=== PATIENT | male | born 1965 | race Caucasian/White ===

== ENCOUNTER → 2016-06-08 | Outpatient (CLI) | payer BC ==
[~2016-06-08] VITALS: Ht 190.5 cm; Wt 157.8 kg
[~2016-06-08] MED LIST: ALL100 PO; ALLO100T PO; FRRS300 PO; ICOS1CAP PO; LISI-787 PO; OXYC1TAB3 PO; SYMIN160 INH; TESTOSTERONE SC
[2016-06-08 15:11] VITALS: BP 155/91; PULSE 101; Ht 190.5 cm; Wt 157.8 kg
== END | disposition home or self-care (01) ==
LOC: C.NEUR 14:20
PROVIDERS: ATTEND Internal Medicine Pulmonary Disease
DX: G47.33 Obstructive sleep apnea (adult) (pediatric) (principal); I10 Essential (primary) hypertension

== ENCOUNTER → 2016-06-19 | Outpatient (CLI) | payer BC ==
[2016-06-19 15:10] LABS: ALKALINE PHOSPHATASE 69 U/L (45-117); ALT/SGPT 49 U/L (12-78); AST/SGOT 34 U/L (15-37); BLOOD UREA NITROGEN 17 mg/dl (7-18); BUN/CREATININE RATIO 12.1 (10-20); CALCIUM 8.8 mg/dl (8.5-10.1); CARBON DIOXIDE 26 mmol/L (21-32); CHLORIDE 100 mmol/L (98-107); CHOLESTEROL 155 mg/dl (0-200); CHOLESTEROL/HDL RATIO 5.3; GLUCOSE 118 mg/dl (70-99); HDL CHOLESTEROL 29 mg/dl; POTASSIUM 3.7 mmol/L (3.5-5.1); SODIUM 138 mmol/L (136-145); TRIGLYCERIDES 428 mg/dl (0-150)
== END | disposition home or self-care (01) ==
LOC: C.LAB 06-10 14:17
PROVIDERS: ATTEND Nurse Practitioner Acute Care
DX: R63.5 Abnormal weight gain (principal); E55.9 Vitamin D deficiency, unspecified; G47.9 Sleep disorder, unspecified; R53.81 Other malaise; E03.9 Hypothyroidism, unspecified; E25.8 Other adrenogenital disorders

== ENCOUNTER → 2016-06-23 | Outpatient (CLI) | payer BC ==
--- NOTE | 2016-06-26 09:03 | POLYSOMNOGRAPH REPORT ---
CLINICAL DATA: 50-year-old male with BMI of 43.[address] Coles and Dr. Baum with a history of loud snoring, fatigue, falling asleep inappropriately and unrefreshing sleep. On the evening of 06/23/2016, a home sleep apnea test was performed using a [employer] type 3 monitor. RECORDING RESULTS: Total recording time was 10 hours. The patient's monitoring time and estimated sleep time was 5 hours. RESPIRATORY DATA: Moderate sleep apnea was documented. The KRISTIN was 21. There were 7 obstructive apneic episodes and 99 hypopneic episodes recorded. The longest respiratory event recorded was 57 seconds. OXIMETRY DATA: Significant nocturnal hypoxemia was seen. Oxygen gretchen was 74%. Mean saturation was 91%. Time below 89% was 49 minutes. HEART RATE DATA: Heart rates ranged from 59-75 beats per minute. SNORING DATA: Loud snoring was recorded throughout the night. IMPRESSION: Moderate sleep apnea/hypopnea with an KRISTIN of 21 with significant nocturnal hypoxemia with an oxygen gretchen of 74%. RECOMMENDATIONS: The patient would benefit from a repeat sleep study with CPAP. ESCOBAR
== END | disposition home or self-care (01) ==
LOC: C.NEUR 10:10
PROVIDERS: ATTEND Internal Medicine Pulmonary Disease
DX: J44.9 Chronic obstructive pulmonary disease, unspecified (principal); I10 Essential (primary) hypertension; E66.01 Morbid (severe) obesity due to excess calories; G47.33 Obstructive sleep apnea (adult) (pediatric)

== ENCOUNTER → 2016-07-23 | Outpatient (CLI) | payer BC ==
[~2016-07-23] VITALS: Ht 190.5 cm; Wt 156.3 kg
[2016-07-23 15:21] VITALS: BP 116/80; PULSE 99; Ht 190.5 cm; Wt 156.3 kg
== END | disposition home or self-care (01) ==
LOC: C.NEUR 15:03
PROVIDERS: ATTEND Internal Medicine Pulmonary Disease
DX: G47.33 Obstructive sleep apnea (adult) (pediatric) (principal); J44.9 Chronic obstructive pulmonary disease, unspecified

== ENCOUNTER 2016-07-31 16:38 | Emergency (ER) | payer BC ==
[~2016-07-31] VITALS: Ht 193 cm; Wt 151.3 kg
[~2016-07-31 16:38] MED LIST changes: -FRRS300 PO; -OXYC1TAB3 PO; -SYMIN160 INH; -TESTOSTERONE SC
[2016-07-31 16:41] VITALS: TEMP 37; Ht 193 cm; Wt 151.3 kg
[2016-07-31] MEDS ORDERED: SYMIN160 INH (16:50)
[2016-07-31] MEDS ORDERED: OXYCODONE HCL IR 5 MG TAB (IMMEDIATE RELEASE) PO STA (16:57)
--- NOTE | 2016-07-31 18:00 | DIAGNOSTIC IMAGING REPORT ---
RIGHT SHOULDER MIN 2 VIEWS ROUTINE CLINICAL HISTORY: Fall, right shoulder pain Right pain COMPARISON: None. DISCUSSION: Mild degenerative change. No acute bony abnormality. There is no evidence for soft tissue swelling. IMPRESSION: Mild degenerative change. No acute bony abnormality. Electronically signed by: Neil Thomas M.D. 07/31/2016 5:59 PM Dictated Date/Time: 07/31/2016 5:58 PM
--- NOTE | 2016-07-31 18:00 | DIAGNOSTIC IMAGING REPORT ---
RIGHT SCAPULA CLINICAL HISTORY: Fall, right shoulder pain Right COMPARISON: None. DISCUSSION: The bones and joint spaces appear intact. There is no evidence of fracture, dislocation or bony disease. There is no evidence for soft tissue swelling. IMPRESSION: Negative study. Electronically signed by: Neil Thomas M.D. 07/31/2016 5:59 PM Dictated Date/Time: 07/31/2016 5:59 PM
--- NOTE | 2016-07-31 18:01 | DIAGNOSTIC IMAGING REPORT ---
RIGHT RIBS UNILATERAL WITH PA CHEST CLINICAL HISTORY: Fall, right shoulder pain/rib pain Right COMPARISON STUDY: None FINDINGS: Negative study IMPRESSION: Negative study Electronically signed by: Neil Thomas M.D. 07/31/2016 6:00 PM Dictated Date/Time: 07/31/2016 5:59 PM
[2016-07-31] MEDS ORDERED: OXYCODONE IR HOME PACK PO STA (18:37)
[2016-07-31] MEDS ORDERED: OXYC1TAB3 PO (18:38)
--- NOTE | 2016-07-31 18:39 | EMERGENCY ROOM VISIT NOTE ---
History First contact with patient: 16:47 Chief Complaint: SHOULDER PAIN Stated Complaint: SHOULDER PAIN, CAN'T LIFT ARM History of Present Illness The patient is a 51 year old male who presents to the Emergency Room via private vehicle accompanied by female with complaints of "shoulder pain, can't lift arm". The patient states that earlier today he was at the top of the steps in his home, when his foot slipped and he tumbled down the steps striking the right shoulder region. He notes that he went to work, and since then has been experiencing pain in the right shoulder. He notes that he cannot lift the right arm secondary to pain and weakness in the right shoulder. He does have a history of right shoulder surgery, where synthetic material was placed in the shoulder at the age of 15 or 16 in [place]. He also notes pain just medial to the right shoulder as well as overlying the scapula. He rates the pain as a 7/ 10. He does note that when he fell he may have lost consciousness. At this time he denies any headache, neck pain, shortness of breath. Review of Systems A complete 6-point Review of Systems was discussed with the patient, with pertinent positives and negatives listed in the History of Present Illness. All remaining Review of Systems questions can be considered negative unless otherwise specified. Past Medical/Surgical History Medical Problems: (1) Asthma (2) Hypertension Family History Hypertension Social History Smoking Status: Never Smoker Alcohol Use: none Marital Status: Housing Status: lives with significant other Occupation Status: employed Current/Historical Medications Scheduled Allopurinol (Zyloprim), 100 MG PO DAILY Budesonide/Formoterol Fumarate (Symbicort 160/4.5 Inhaler ), 2 PUFFS INH BID Icosapent Ethyl (Vascepa), 2 CAP PO BID Lisinopril/Hctz (Zestoretic 20MG/12.5MG), 1 TAB PO AMPM Scheduled PRN Oxycodone Ir (Roxicodone Ir), 1-2 TAB PO Q4H PRN for Pain Allergies Coded Allergies: Cephalexin (Verified Allergy, Intermediate, FEVER/DIAPHORESIS, 07/31/16) Physical Exam Vital Signs Date Time Temp Pulse Resp B/P Pulse Ox O2 Delivery O2 Flow Rate FiO2 07/31/16 18:49 92 18 137/89 93 Room Air 07/31/16 16:41 37.0 95 20 149/93 94 Room Air Physical Exam VITAL SIGNS - Vital signs and nursing notes were reviewed. Patient is afebrile , he is hypertensive at 149/93, he is not tachycardic and is saturating well on room air at 94%. GENERAL -51-year-old male appearing his stated age who is in no acute distress. Communicates well with provider and answers questions appropriately. SKIN - Without rashes. No petechial rashes. There is evidence of well-healed surgical scar overlying the right anterior shoulder. HEAD - NC/AT. EYES - PERRL with EOMI bilaterally. Sclera anicteric. Palpebral conjunctiva pink and moist with no injection noted. EARS - No deformities of external structures noted on gross examination bilaterally. NOSE - Midline and without cyanosis. No epistaxis or purulent drainage noted. Septum midline without deviation or septal hematoma noted. MOUTH/OROPHARYNX - Without perioral cyanosis. Buccal mucosa pink and moist and without leukoplakia. Tongue midline with equal elevation of palate bilaterally. No tonsillar hypertrophy, erythema, or exudates noted. There dentition noted. NECK - Neck with FROM. Supple to palpation. No C-spine tenderness. No thoracic or lumbar spinous processes tenderness. LUNGS - Chest wall symmetric without accessory muscle use, intercostals retractions, or central cyanosis. Normal vesicular breath sounds CTA B/L. No wheezes, rales, or rhonchi appreciated. CARDIAC - RRR with S1/S2. No murmur, rubs, or gallops appreciated. ABDOMEN - Abdominal contour without pulsations or visible masses. BS normoactive all four quadrants. No tenderness, palpable masses, hepatosplenomegaly, or ascites noted. EXTREMITIES - No clubbing or peripheral cyanosis. No pretibial edema present. Patient is vascular intact in the right upper extremity. There is tenderness to palpation over the right scapular, right lateral ribs as well as right anterior chest region just medial to the right shoulder. The pain seems to be serafin-shoulder. The patient appears to have a deficit of the rotator cuff ligaments, as when he abducts the arm passively, and I have him pronate the hand , the empty can test is positive. No other deficits appreciated. NEUROLOGIC - Cranial nerves II through XII grossly intact. Sensory intact to light touch throughout. Medical Decision & Procedures ER Provider Diagnostic Interpretation: RIGHT SHOULDER MIN 2 VIEWS ROUTINE CLINICAL HISTORY: Fall, right shoulder pain Right pain COMPARISON: None. DISCUSSION: Mild degenerative change. No acute bony abnormality. There is no evidence for soft tissue swelling. IMPRESSION: Mild degenerative change. No acute bony abnormality. Electronically signed by: Neil Thomas M.D. 07/31/2016 5:59 PM Dictated Date/Time: 07/31/2016 5:58 PM RIGHT SCAPULA CLINICAL HISTORY: Fall, right shoulder pain Right COMPARISON: None. DISCUSSION: The bones and joint spaces appear intact. There is no evidence of fracture, dislocation or bony disease. There is no evidence for soft tissue swelling. IMPRESSION: Negative study. Electronically signed by: Neil Thomas M.D. 07/31/2016 5:59 PM Dictated Date/Time: 07/31/2016 5:59 PM RIGHT RIBS UNILATERAL WITH PA CHEST CLINICAL HISTORY: Fall, right shoulder pain/rib pain Right COMPARISON STUDY: None FINDINGS: Negative study IMPRESSION: Negative study Electronically signed by: Neil Thomas M.D. 07/31/2016 6:00 PM Dictated Date/Time: 07/31/2016 5:59 PM Medications Administered Medications (Trade) Dose Ordered Sig/Sixto Route Start Time Stop Time Status Last Admin Dose Admin Oxycodone HCl (Roxicodone Immediate Rel Tab) 5 mg NOW STAT PO 07/31/16 16:57 07/31/16 17:00 DC 07/31/16 17:04 5 MG Oxycodone HCl (Roxicodone Immediate Rel 5MG Home Pack) 1 homepack UD STAT PO 07/31/16 18:37 07/31/16 18:38 DC 07/31/16 18:37 1 HOMEPACK Medical Decision Patient was seen and evaluated as above. After obtaining a thorough history and physical examination it was apparent that the patient had sustained an injury to the right shoulder, likely to the rotator cuff muscles, particularly the supraspinatus and physical examination and clinical presentation. Because of the nature of the injury, radiographs were obtained of the right shoulder, scapula and ribs unilateral with PA chest. He did request something for pain, therefore was given an OxyIR tablets, and ice packs. Radiographs did not reveal any acute fracture. Degenerative changes noted. These were discussed with the patient. The patient does appear to have a rotator cuff injury, therefore arm sling was applied, and he was instructed to follow-up with the on- call orthopedic doctor by calling the number first thing Wednesday morning. He was provided this contact information. He was educated upon management of today 's findings. He was given a short term supply of OxyIR as well as a home pack as his pharmacy was likely closed. He was educated upon worrisome symptoms which to return, he had questions answered prior to discharge, and was discharged home in good condition. He respectfully declined a head CT, which I believe was appropriate status post fall with loss of consciousness. There was no neurologic deficit. In the evaluation and treatment of this patient the following differential diagnoses were entertained: Rotator cuff muscle injury, contusion of the right shoulder, dislocation, fracture of the humerus, shoulder, scapula, clavicle, pneumothorax, among others. [facility] Drug Monitoring Program Search Results: patient reviewed within database, no issues identified Impression Primary Impression: Fall Additional Impression: Right shoulder injury Departure Information Dispostion Home / Self-Care Condition GOOD Prescriptions Oxycodone Ir (Roxicodone Ir) 5 Mg Tab 1-2 TAB PO Q4H Y for Pain, #15 TAB For Initial Treatment Prov: Michael Camejo PA-C 07/31/16 Referrals Travis Baum M.D. (PCP) Todd Keller D.O. Patient Instructions My [facility] Additional Instructions You have been treated in the Emergency Department for Shoulder Pain. You have received pain medicine in the emergency department which impairs your ability to operate a vehicle. It is illegal for you to drive after receiving these medicines. You have been prescribed Oxy IR to be used for pain control. This is a narcotic medication. You cannot drive or consume alcohol while on this medicine. This medicine should only be used for pain that cannot be controlled with over-the- counter pain medicines. For pain control, you can use the following lyxi-ojr-sujivfi medicines (if >12 yo): - Regular strength (325mg/tab) Tylenol (acetaminophen) 2 tabs every 4-6 hours as needed. Do not exceed 12 tablets in a 24 hour period. Avoid taking more than 4 grams (4000 mg) of Tylenol per day. This includes any other sources of acetaminophen you may take on a regular basis. - Regular strength (200 mg/tab) Advil (ibuprofen) 1-2 tabs every 4-6 hours as needed. Do not exceed a dose of 3200 mg per day. If this is a recent injury (<24 hrs), ice can be applied to the area of pain for the first 3 days to help decrease pain and inflammation. You have been provided the number for an Orthopaedic Surgeon. You should call this number as soon as possible to establish a follow-up visit from today's Emergency Department visit. Keep the shoulder brace/sling in place until evaluated by Orthopedics. Continue to perform range of motion exercises several times per day to help prevent the development of a "frozen shoulder". Return to the Emergency Department if your current symptoms worsen despite treatment course outlined above, or if you develop any of the following symptoms : intractable pain despite aforementioned treatment course or new onset of numbness or tingling of the arm. Please return to the emergency department with any new/concerning symptoms. Problem Qualifiers
[2016-07-31 18:49] VITALS: BP 137/89; PULSE 92; O2SAT 93
[2016-08-18] MEDS ORDERED: OXYC1TAB3 PO (15:55)
[2016-10-14] MEDS ORDERED: TESTOSTERONE SC (14:06)
[2016-10-24] MEDS ORDERED: FRRS300 PO (09:34)
== END 2016-07-31 18:50 | disposition home or self-care (01) ==
LOC: C.EDB 16:39 → C.EDD 18:50
DX: S49.91XA Unspecified injury of right shoulder and upper arm, initial encounter (principal); W01.0XXA Fall on same level from slipping, tripping and stumbling without subsequent striking against object, initial encounter; Y92.019 Unspecified place in single-family (private) house as the place of occurrence of the external cause; I10 Essential (primary) hypertension; J45.909 Unspecified asthma, uncomplicated; Z79.899 Other long term (current) drug therapy; Z88.3 Allergy status to other anti-infective agents; Z82.49 Family history of ischemic heart disease and other diseases of the circulatory system

== ENCOUNTER → 2016-08-06 | Outpatient (CLI) | payer BC ==
[~2016-08-06] MED LIST changes: -ALL100 PO; +FRRS300 PO; +OXYC1TAB3 PO; +SYMIN160 INH; +TESTOSTERONE SC
[2016-08-06 15:36] LABS: MAGNESIUM 2.2 mg/dl (1.8-2.4); PROSTATE SPECIFIC ANTIGEN 1.09 ng/ml (0.000-4.000)
[2016-08-07 06:28] LABS: ESTIMATED AVERAGE GLUCOSE 120 mg/dl; HA1C FLAG Normal (Normal)
--- NOTE | 2016-08-11 12:27 | CODING QUERY MEDICAL NECESSITY ---
SUPPORTING DIAGNOSIS NEEDED A supporting diagnosis is required for the test/procedure performed on this patient in order for us to be reimbursed by the patient's insurance. Please provide a supporting diagnosis for the following test/procedure listed below next to the test name along with your signature. *If there is no additional diagnosis for this patient that would support the following test/procedure please document that below next to the test/procedure. Test(s)/Procedure(s) that require a supporting diagnosis: DOS 08/06 * Hba1c DIAGNOSIS: * PSA DIAGNOSIS: Provider Signature: Date: Thank you Leeanne Ruiz Health Information Management Once completed, please kindly fax back to [phone] For questions please call [phone]
== END | disposition home or self-care (01) ==
LOC: C.LABSPEC 19:01
PROVIDERS: ATTEND Nurse Practitioner Acute Care
DX: E03.9 Hypothyroidism, unspecified (principal); R53.81 Other malaise; R63.5 Abnormal weight gain; G47.9 Sleep disorder, unspecified; E55.9 Vitamin D deficiency, unspecified; E25.8 Other adrenogenital disorders; R73.02 Impaired glucose tolerance (oral); R39.15 Urgency of urination

== ENCOUNTER → 2016-08-18 | Outpatient (CLI) | payer BC ==
[~2016-08-18] MED LIST changes: +ASPI81TA28 PO; +OXYC-57 PO; +PHEN-876 PO; +PROM25TA9 PO; +SULF800T23 PO
[2016-08-18 12:49] LABS: BASO % 0.7 %; BASO ABS # 0.04 K/uL (0-0.2); COMPLETE YES; EOS % 1.5 %; HEMATOCRIT 41.9 % (42-52); IG% 0.7 %; LYMPH % 40.6 %; LYMPH ABS # 2.41 K/uL (1.2-3.4); MEAN CORPUSCULAR HEMOGLOBIN 25.9 pg (25-34); MEAN CORPUSCULAR HGB CONC 31.3 g/dl (32-36); MEAN PLATELET VOLUME 9.7 fL (7.4-10.4); MONO % 6.4 %; NEUT % 50.1 %; PLATELET COUNT 264 K/uL (130-400); RED BLOOD COUNT 5.05 M/uL (4.7-6.1); WHITE BLOOD COUNT 5.93 K/uL (4.8-10.8)
--- NOTE | 2016-08-18 12:58 | DIAGNOSTIC IMAGING REPORT ---
CHEST 2 VIEWS ROUTINE CLINICAL HISTORY: Preoperative evaluation. COMPARISON STUDY: Chest radiograph July 31, 2016. FINDINGS: Incidental note is made of an azygos fissure. There are old left rib fractures. No pneumothorax or pleural effusion is present. There is no pneumonia. Cardiac size is normal. There is slight leftward deviation of the trachea. Lateral view demonstrates a mass-like opacity located between the trachea and esophagus which displaces the trachea anteriorly. IMPRESSION: 1. Abnormal mediastinal contours as described above which may reflect a right-sided aortic arch or a double aortic arch. A mass is considered less likely but a follow-up CT of the chest with contrast is recommended to exclude a mass and to evaluate for a possible vascular ring. 2. No acute cardiopulmonary findings. Electronically signed by: Jer Huitron M.D. 08/18/2016 12:57 PM Dictated Date/Time: 08/18/2016 12:40 PM
[2016-08-18 13:13] LABS: BLOOD UREA NITROGEN 19 mg/dl (7-18); BUN/CREATININE RATIO 15.8 (10-20); CARBON DIOXIDE 32 mmol/L (21-32); CHLORIDE 101 mmol/L (98-107); GLUCOSE 92 mg/dl (70-99); SODIUM 139 mmol/L (136-145)
[2016-08-18 15:11] LABS: URINE APPEARANCE CLEAR (CLEAR); URINE BILIRUBIN NEG (NEG); URINE COLOR YELLOW; URINE NITRITE NEG (NEG); URINE PH 6.5 (4.5-7.5); URINE SPECIFIC GRAVITY 1.024 (1.000-1.030); UROBILINOGEN NEG (NEG)
[2016-08-18 15:16] LABS: MANUAL MICROSCOPIC REQUIRED? YES; REVIEW REQ? NO
[2016-08-18 15:55] LABS: URINE BACTERIA 1+ (NEG); URINE RBC 0-4 /hpf (0-4)
== END | disposition home or self-care (01) ==
LOC: C.CPL 12:09
PROVIDERS: ATTEND Orthopaedic Surgery Sports Medicine
DX: Z01.810 Encounter for preprocedural cardiovascular examination (principal); Z01.812 Encounter for preprocedural laboratory examination

== ENCOUNTER → 2016-08-21 | Outpatient (CLI) | payer BC ==
[~2016-08-21] MED LIST changes: +OPTIRAY 320 IV PRN
--- NOTE | 2016-08-21 08:10 | DIAGNOSTIC IMAGING REPORT ---
CHEST CT WITH CONTRAST CT DOSE: 1324.52 mGy.cm HISTORY: R93.8 Abnormal chest xrayplease eval cardiac structures, trachea TECHNIQUE: Multiaxial CT images of the chest were performed following the intravenous administration of contrast. COMPARISON: None. FINDINGS: Right-sided aortic arch. Several calcified mediastinal and/or hilar nodes. There is an azygos lobe right upper lung considered anatomic variation. No evidence for compromise of the trachea. Lungs are considered generally clear. Minimal scattered pleural thickening most likely chronic. Several small calcified granulomas. No significant cardiac enlargement. IMPRESSION: Right sided aortic arch. Chronic granulomatous change. No acute process of the chest. note is made of a focal cortical fracture of the mid right scapula demonstrate early periosteal reaction and or healing.. This is not appreciated on the patient's prior routine films. Electronically signed by: Neil Thomas M.D. 08/21/2016 8:08 AM Dictated Date/Time: 08/21/2016 8:01 AM
== END | disposition home or self-care (01) ==
LOC: C.CTS 07:14
PROVIDERS: ATTEND Nurse Practitioner
DX: R93.8 Abnormal findings on diagnostic imaging of other specified body structures (principal)

== ENCOUNTER → 2016-09-04 | Outpatient (CLI) | payer BC ==
[~2016-09-04] MED LIST changes: -OPTIRAY 320 IV PRN
== END | disposition home or self-care (01) ==
LOC: C.LAB 14:05
PROVIDERS: ATTEND Nurse Practitioner Acute Care
DX: E03.9 Hypothyroidism, unspecified (principal); R53.83 Other fatigue; R63.5 Abnormal weight gain; G47.9 Sleep disorder, unspecified; E55.9 Vitamin D deficiency, unspecified; E25.9 Adrenogenital disorder, unspecified; E34.9 Endocrine disorder, unspecified

== ENCOUNTER → 2016-10-19 | Day surgery (SDC) | payer BC ==
[2016-10-14 14:07] VITALS: Ht 193 cm; Wt 111.4 kg
[~2016-10-19] VITALS: Ht 193 cm; Wt 111.4 kg
[~2016-10-19] MED LIST changes: +ATROPINE SULFATE 0.1 MG/ML 5ML SYR IV PRN; +EpHEDrine SULFATE INJ 50 MG/ML AMP IV PRN; +KETAMINE HCL INJ 50 MG/ML 10 ML VIAL ONE; +LIDOCAINE HCL 2% 2 ML VIAL (20MG/ML) ONE; -OXYC1TAB3 PO; +PROPOFOL IV EMULSION 10 MG/ML 20 ML VIAL IV ONE; +SODIUM CHLORIDE 0.9% 500ML 500 ML IV ONE
[2016-10-19 12:26] VITALS: TEMP 36.8
--- NOTE | 2016-10-19 13:19 | Endo History and Physical ---
History & Physical Date of Service: Oct 19, 2016. Chief Complaint: screening Referring Physician: Dr. Travis Baum History of Present Illness 51 yo CM who presents for screening colonoscopy. Past Surgical History Hx Cardiac Surgery: No Hx Internal Defibrillator: No Hx Pacemaker: No Hx Abdominal Surgery: No Hx of Implantable Prosthesis: No Hx Post-Op Nausea and Vomiting: No Hx Cancer Surgery: No Hx Thoracic Surgery: No Hx Orthopedic: Yes (LEFT FOOT SURGERY, RT SHOULDER RECONSTRUCTION, CERVICAL FUSION C3-4) Hx Urinary Tract Surgery: No Family History None Social History Smoking Status: Never Smoker Hx Substance Use: No Hx Alcohol Use: Yes ("VERY SELDOM") Allergies Coded Allergies: Cephalexin (Verified Allergy, Intermediate, FEVER/DIAPHORESIS, 10/14/16) Current Medications Reported Home Medications Medications Dose Route/Sig Max Daily Dose Days Date Category [Testosterone] 1 Dose SC 2XWK 10/14/16 Reported Symbicort 160/4.5 Inhaler (Budesonide/Formoterol Fumarate) Aero 2 Puffs INH BID 07/31/16 Reported Zyloprim (Allopurinol) 100 Mg Tab 100 Mg PO QAM 01/15/16 Reported Zestoretic 20MG/12.5MG (HCTZ/Lisinopril) Tab 1 Tab PO AMPM 01/15/16 Reported Vascepa (Icosapent Ethyl) 1 Gm Cap 2 Cap PO BID 01/15/16 Reported Vital Signs Weight (Kilograms): 111.36 Height (Feet): 6 Height (Inches): 4 Date Time Temp Pulse Resp B/P (MAP) Pulse Ox O2 Delivery O2 Flow Rate FiO2 10/19/16 12:26 36.8 85 20 170/96 95 Room Air Physical Exam General Appearance: WD/WN, no apparent distress Respiratory/Chest: Auscultation: breath sounds normal Cardiovascular: Heart Auscultation: RRR Abdomen: Bowel Sounds: normal Inspection & Palpation: soft, non-distended, no tenderness, guarding & rebound Assessment and Plan Assessment: 51 yo CM who presents for screening colonoscopy. Plan: Proceed with colonoscopy.
--- NOTE | 2016-10-19 13:53 | Discharge Instructions ---
Endoscopy Patient Instructions Date / Procedure(s) Performed Oct 19, 2016. Colonoscopy Allergy Information Coded Allergies: Cephalexin (Verified Allergy, Intermediate, FEVER/DIAPHORESIS, 10/14/16) Discharge Date / Findings Oct 19, 2016. Colon polyps Internal hemorrhoids Provider Instructions Activity Restrictions - No exercising or heavy lifting for 24 hours. - Do not drink alcohol the day of the procedure. - Do not drive a car or operate machinery until the day after the procedure. - Do not make any important decisions or sign important papers in 24 hours after the procedure. Following Day: - Return to full activity which may include returning to work/school. Diet Start your diet with liquids and light foods (jello, soup, juice, toast). Then eat your usual diet if not nauseated. Treatment For Common After Affects For mild abdominal pain, bloating, or excessive gas: - Rest - Eat lightly - Lie on right side Follow-Up Information Follow-up with Dr. Travis Baum as scheduled Anesthesia Information What You Should Know You have had a procedure that required some medicine to reduce anxiety and discomfort. This treatment is called moderate sedation. After receiving the treatment, you may be sleepy, but you will be able to breathe on your own. The effects of the treatment may last for several hours. Follow these instructions along with Activity/Diet recommendations noted above: * Do NOT do anything where dizziness or clumsiness would be dangerous. * Rest quietly at home today, then you can be up and about tomorrow. * Have a responsible person stay with you the rest of today. * You may have had an I.V. today. If so, you may take the dressing off later today. Recommendations Call your doctor if: * Trouble breathing * Continuous vomiting for more than 24 hours * Temperature above 101 degrees * Severe abdominal pain or bloating * Pain not relieved by pain medicine ordered * There is increased drainage or redness from any incision * A large amount of rectal bleeding greater than 2-3 tablespoons. (If you had a polyp/s removed or have hemorrhoids, a small amount of blood - from the rectum is to be expected.) * You have any unanswered questions or concerns. IN THE EVENT OF A SERIOUS EMERGENCY, GO TO THE NEAREST EMERGENCY ROOM Your discharge instructions were prepared by provider Miguelito Calhoun. Patient Instructions Signature Page Brody Mares Patient (or Guardian) Signature/Date: I have read and understand the instructions given to me by my caregivers. Caregiver/RN/Doctor Signature/Date: The above-named patient and/or guardian has received patient instructions on this date. + Original Patient Signature Page (only) stays with chart. Please make copy for patient.
--- NOTE | 2016-10-19 13:56 | GI REPORT ---
Procedure Date: 10/19/2016 1:10 PM Procedure: Colonoscopy Indications: Screening for colorectal malignant neoplasm Medicines: Monitored Anesthesia Care Complications: No immediate complications. Estimated Blood Loss: Estimated blood loss: none. Procedure: Pre-Anesthesia Assessment: - Prior to the procedure, a History and Physical was performed, and patient medications and allergies were reviewed. The patient's tolerance of previous anesthesia was also reviewed. The risks and benefits of the procedure and the sedation options and risks were discussed with the patient. All questions were answered, and informed consent was obtained. Prior Anticoagulants: The patient has taken no previous anticoagulant or antiplatelet agents. ASA Grade Assessment: III - A patient with severe systemic disease. After reviewing the risks and benefits, the patient was deemed in satisfactory condition to undergo the procedure. After I obtained informed consent, the scope was passed under direct vision. Throughout the procedure, the patient's blood pressure, pulse, and oxygen saturations were monitored continuously. The On-site loaner was introduced through the anus and advanced to the cecum, identified by appendiceal orifice and ileocecal valve. The colonoscopy was performed without difficulty. The patient tolerated the procedure well. The quality of the bowel preparation was good. The ileocecal valve, appendiceal orifice, and rectum were photographed. Findings: Four sessile polyps were found in the sigmoid colon and in the ascending colon. The polyps were 5 to 15 mm in size. These polyps were removed with a hot snare. Resection and retrieval were complete. To prevent bleeding after the polypectomy, five hemostatic clips were successfully placed (MR conditional). There was no bleeding at the end of the procedure. Non-bleeding internal hemorrhoids were found during retroflexion. The hemorrhoids were small. Impression: - Four 5 to 15 mm polyps in the sigmoid colon and in the ascending colon, removed with a hot snare. Resected and retrieved. Clips (MR conditional) were placed. - Non-bleeding internal hemorrhoids. Recommendation: - Resume previous diet. - Continue present medications. - Repeat colonoscopy for surveillance based on pathology results. - Return to primary care physician as previously scheduled. Miguelito Calhoun DO 10/19/2016 1:55:41 PM This report has been signed electronically. Note Initiated On: 10/19/2016 1:10 PM I attest to the content of the Intraoperative Record and orders documented therein, exceptions below
[2016-10-19 14:30] VITALS: BP 137/90; PULSE 77; O2SAT 95
--- NOTE | 2016-10-19 14:36 | Anesthesiology Progress Note ---
Anesthesia Post Op Note Date & Time Oct 19, 2016 at 14:36 Vital Signs Pain Intensity: 0 Vital Signs Past 12 Hours Date Time Temp Pulse Resp B/P (MAP) Pulse Ox O2 Delivery O2 Flow Rate FiO2 10/19/16 14:30 77 20 137/90 95 Room Air 10/19/16 14:15 75 18 139/85 95 Room Air 10/19/16 13:59 77 18 109/80 96 Room Air 10/19/16 12:26 36.8 85 20 170/96 95 Room Air Notes Mental Status: alert / awake / arousable, participated in evaluation Pt Amnestic to Procedure: Yes Nausea / Vomiting: adequately controlled Pain: adequately controlled Airway Patency, RR, SpO2: stable & adequate BP & HR: stable & adequate Hydration State: stable & adequate Anesthetic Complications: no major complications apparent
== END | disposition home or self-care (01) ==
LOC: C.GI 12:09
PROVIDERS: ATTEND Internal Medicine
DX: Z12.11 Encounter for screening for malignant neoplasm of colon (principal); D12.2 Benign neoplasm of ascending colon; K64.8 Other hemorrhoids; Z98.1 Arthrodesis status; J44.9 Chronic obstructive pulmonary disease, unspecified; G47.33 Obstructive sleep apnea (adult) (pediatric); I10 Essential (primary) hypertension; E78.5 Hyperlipidemia, unspecified; E66.9 Obesity, unspecified; D12.5 Benign neoplasm of sigmoid colon

== ENCOUNTER 2016-10-22 00:05 | Inpatient (IN) | payer BC ==
[~2016-10-22] VITALS: Ht 193 cm; Wt 147.0 kg
[2016-10-22] VITALS (11 sets, daily range): BP systolic 112–201; BP diastolic 66–105; PULSE 77–91; TEMP 36.3–37.1; O2SAT 91–96; Ht 193 cm; Wt 147.0 kg
[~2016-10-22 00:05] MED LIST changes: -ASPI81TA28 PO; -ATROPINE SULFATE 0.1 MG/ML 5ML SYR IV PRN; -EpHEDrine SULFATE INJ 50 MG/ML AMP IV PRN; -FRRS300 PO; -KETAMINE HCL INJ 50 MG/ML 10 ML VIAL ONE; -LIDOCAINE HCL 2% 2 ML VIAL (20MG/ML) ONE; -OXYC-57 PO; -PHEN-876 PO; -PROM25TA9 PO; -PROPOFOL IV EMULSION 10 MG/ML 20 ML VIAL IV ONE; -SODIUM CHLORIDE 0.9% 500ML 500 ML IV ONE; -SULF800T23 PO
[2016-10-22] MEDS ORDERED: SODIUM CHLORIDE 0.9% 1000ML 1,000 ML IV STA (00:24)
--- NOTE | 2016-10-22 00:36 | EMERGENCY ROOM VISIT NOTE ---
History Report prepared by Tammy: Francisco Bullock Under the Supervision of: Dr. Cholo Crowell D.O. First contact with patient: 00:18 Chief Complaint: RECTAL BLEEDING Stated Complaint: RECTAL BLEEDING AFTE COLONOSCOPY History of Present Illness The patient is a 51 year old male who presents to the Emergency Room with complaints of intermittent hematochezia beginning 9 hours ago. He currently rates his discomfort a 6/10 in severity. The patient states that he had a colonoscopy with Dr. Calhoun, [facility] two days ago due to his age. He reports that he had a 1cm polypectomy. The patient notes that the blood is bright red and is not actively bleeding. He denies vomiting. The patient reports that he is no longer taking aspirin. Source of History: patient Onset: 9 hours ago Position: buttock Symptom Intensity: 6/10 Quality: other (hematochezia) Timing: intermittent Associated Symptoms: No vomiting Review of Systems See HPI for pertinent positives and negatives. A total of ten systems were reviewed and were otherwise negative. Past Medical & Surgical Medical Problems: (1) Asthma (2) Hypertension Family History Hypertension Social History Smoking Status: Never Smoker Alcohol Use: none Marital Status: Housing Status: lives with significant other Occupation Status: employed Current/Historical Medications Scheduled Allopurinol (Zyloprim), 100 MG PO QAM Budesonide/Formoterol Fumarate (Symbicort 160/4.5 Inhaler ), 2 PUFFS INH BID Icosapent Ethyl (Vascepa), 2 CAP PO BID Lisinopril/Hctz (Zestoretic 20MG/12.5MG), 1 TAB PO AMPM [Testosterone], 1 DOSE SC 2XWK Allergies Coded Allergies: Cephalexin (Verified Allergy, Intermediate, FEVER/DIAPHORESIS, 10/22/16) Physical Exam Vital Signs Date Time Temp Pulse Resp B/P (MAP) Pulse Ox O2 Delivery O2 Flow Rate FiO2 10/22/16 01:47 82 16 136/81 96 10/22/16 01:35 85 16 94 10/22/16 01:15 86 10/22/16 00:58 145/93 10/22/16 00:56 96 Room Air 10/22/16 00:09 36.7 96 16 141/86 94 Room Air Physical Exam GENERAL: Awake, alert, well-appearing, in no distress HENT: Normocephalic, atraumatic. Oropharynx unremarkable. EYES: Normal conjunctiva. Sclera non-icteric. NECK: Supple. No nuchal rigidity. FROM. No JVD. RESPIRATORY: Clear to auscultation. CARDIAC: Regular rate, normal rhythm. Extremities warm and well perfused. Pulses equal. ABDOMEN: Soft, mild-distention. No tenderness to palpation. No rebound or guarding. No masses. RECTAL: Deferred. MUSCULOSKELETAL: Chest examination reveals no tenderness. The back is symmetrical on inspection without obvious abnormality. There is no CVA tenderness to palpation. No joint edema. LOWER EXTREMITIES: Calves are equal size bilaterally and non-tender. No edema. No discoloration. NEURO: Normal sensorium. No sensory or motor deficits noted. SKIN: No rash or jaundice noted. Medical Decision & Procedures Laboratory Results 10/22/16 00:52 Red Blood Count 5.37, Mean Corpuscular Volume 78.8, Mean Corpuscular Hemoglobin 23.8, Mean Corpuscular Hemoglobin Concent 30.3, Mean Platelet Volume 9.1, Neutrophils (%) (Auto) 57.8, Lymphocytes (%) (Auto) 33.6, Monocytes (%) (Auto) 6.7, Eosinophils (%) (Auto) 0.9, Basophils (%) (Auto) 0.5, Neutrophils # (Auto) 4.71, Lymphocytes # (Auto) 2.74, Monocytes # (Auto) 0.55, Eosinophils # (Auto) 0.07, Basophils # (Auto) 0.04 10/22/16 00:52 Test 10/22/16 00:52 White Blood Count 8.15 K/uL (4.8-10.8) Red Blood Count 5.37 M/uL (4.7-6.1) Hemoglobin 12.8 g/dL (14.0-18.0) Hematocrit 42.3 % (42-52) Mean Corpuscular Volume 78.8 fL (80-100) Mean Corpuscular Hemoglobin 23.8 pg (25-34) Mean Corpuscular Hemoglobin Concent 30.3 g/dl (32-36) Platelet Count 202 K/uL (130-400) Mean Platelet Volume 9.1 fL (7.4-10.4) Neutrophils (%) (Auto) 57.8 % Lymphocytes (%) (Auto) 33.6 % Monocytes (%) (Auto) 6.7 % Eosinophils (%) (Auto) 0.9 % Basophils (%) (Auto) 0.5 % Neutrophils # (Auto) 4.71 K/uL (1.4-6.5) Lymphocytes # (Auto) 2.74 K/uL (1.2-3.4) Monocytes # (Auto) 0.55 K/uL (0.11-0.59) Eosinophils # (Auto) 0.07 K/uL (0-0.5) Basophils # (Auto) 0.04 K/uL (0-0.2) RDW Standard Deviation 48.0 fL (36.4-46.3) RDW Coefficient of Variation 16.8 % (11.5-14.5) Immature Granulocyte % (Auto) 0.5 % Immature Granulocyte # (Auto) 0.04 K/uL (0.00-0.02) Prothrombin Time 11.1 SECONDS (9.0-12.0) Prothromb Time International Ratio 1.0 (0.9-1.1) Activated Partial Thromboplast Time 27.1 SECONDS (21.0-31.0) Partial Thromboplastin Ratio 1.0 Anion Gap 9.0 mmol/L (3-11) Est Creatinine Clear Calc Drug Dose 113.0 ml/min Estimated GFR () 80.1 Estimated GFR (Non- 69.1 BUN/Creatinine Ratio 15.9 (10-20) Calcium Level 8.8 mg/dl (8.5-10.1) Laboratory results reviewed by me Medications Administered Medications (Trade) Dose Ordered Sig/Sixto Route Start Time Stop Time Status Last Admin Dose Admin Sodium Chloride 1,000 ml @ 999 mls/hr Q1H1M STAT IV 10/22/16 00:24 10/22/16 01:24 DC 10/22/16 00:24 999 MLS/HR ED Course 0019: The patient was evaluated in room B07. A complete history and physical exam was performed. 0024: Ordered Sodium Chloride 1000 ml @ 999 mls/hr IV 0109: I reevaluated the patient. He continues to have abdominal cramps and bleed. Otherwise no distress. 0321: I discussed the patients case with Dr. Castillo GI for further treatment options. 0327: I discussed the patient's case with Dr. Wolf, [facility] Hospitalist. The patient will be evaluated for further treatment. Medical Decision Lower GI bleed, postpolypectomy bleed, anemia. Medication Reconciliation: I attest that I have personally reviewed the patient' s current medication list. Patient continued to have crampy abdominal pain and then bright red blood per rectum not actively bleeding and normotensive not tachycardic. Patient's hemoglobin is stable patient's INR was stable. The case was discussed with Dr. Castillo from who recommends a GoLYTELY prep for potential re-scope. The case was discussed with the [facility] in the hospitalist for admission at 3:30 AM Consults Time Called: [phone] Consulting Physician: DALILA Betts Returned Call: [phone] I discussed the patients case with DALILA Betts for further treatment options. Additional Consults: Time Called: [phone] Consulted Physician: Dr. Wolf [facility] Hospitalist Returned Call: [phone] Additional Comments: I discussed the patient's case with Dr. Wolf [facility] Hospitalist. The patient will be evaluated for further treatment. Impression Primary Impression: Rectal bleeding Scribe Attestation The scribe's documentation has been prepared under my direction and personally reviewed by me in its entirety. I confirm that the note above accurately reflects all work, treatment, procedures, and medical decision making performed by me. Departure Information Dispostion Being Evaluated By Hospitalist Referrals Travis Baum M.D. (PCP) Patient Instructions My [facility]
[2016-10-22 01:01] LABS: BASO % 0.5 %; BASO ABS # 0.04 K/uL (0-0.2); COMPLETE YES; EOS % 0.9 %; HEMATOCRIT 42.3 % (42-52); IG% 0.5 %; LYMPH % 33.6 %; LYMPH ABS # 2.74 K/uL (1.2-3.4); MEAN CELL VOLUME 78.8 fL (80-100); MEAN CORPUSCULAR HEMOGLOBIN 23.8 pg (25-34); MEAN CORPUSCULAR HGB CONC 30.3 g/dl (32-36); MEAN PLATELET VOLUME 9.1 fL (7.4-10.4); MONO % 6.7 %; NEUT % 57.8 %; PLATELET COUNT 202 K/uL (130-400); RED BLOOD COUNT 5.37 M/uL (4.7-6.1); WHITE BLOOD COUNT 8.15 K/uL (4.8-10.8)
[2016-10-22 01:09] LABS: PROTHROMBIN TIME (PATIENT) 11.1 SECONDS (9.0-12.0)
[2016-10-22 01:19] LABS: BUN/CREATININE RATIO 15.9 (10-20); CALCIUM 8.8 mg/dl (8.5-10.1); CREATININE 1.2 mg/dl (0.60-1.40); POTASSIUM 3.8 mmol/L (3.5-5.1)
[2016-10-22] MEDS ORDERED: ONDANSETRON INJ 2 MG/ML 2 ML VIAL IV PRN (04:00)
--- NOTE | 2016-10-22 04:52 | History and Physical ---
History & Physical Date & Time of Service: Oct 22, 2016 at 04:36 Chief Complaint: Rectal Bleeding After Colonoscopy Primary Care Physician: Travis Baum M.D. History of Present Illness Source: patient 51 y/o M Hx asthma, HTN, gout. Pt had a routine colonoscopy on 10/19. 4-5 tubulovilous polyps were seen and a 1cm polyp was removed for analysis. At 3pm the previous day he began having lower abdominal pain which was followed by a grossly bloody bowel movement. He has since had 5 additional grossly bloody BMs. He has persistent lower quadrant abdominal pain. He denies SOB, CP or lightheadedness. Past Medical/Surgical History Medical Problems: (1) Asthma Status: Chronic (2) Hypertension Status: Chronic 3) Gout Family History Hypertension Father owing to an NM Mother due to complications of Alzheimer dementia Social History Recently relocated to [place] for work-related reasons - employed by a [employer] company He does not drink or smoke Smoking Status: Never Smoker Marital Status: Occupational Status: employed Allergies Coded Allergies: Cephalexin (Verified Allergy, Intermediate, FEVER/DIAPHORESIS, 10/22/16) Home Medications Scheduled Allopurinol (Zyloprim), 100 MG PO QAM Budesonide/Formoterol Fumarate (Symbicort 160/4.5 Inhaler ), 2 PUFFS INH BID Icosapent Ethyl (Vascepa), 2 CAP PO BID Lisinopril/Hctz (Zestoretic 20MG/12.5MG), 1 TAB PO AMPM [Testosterone], 1 DOSE SC 2XWK Review of Systems Constitutional: No fever, No chills, No sweats Eyes: No worsening of vision, No eye pain ENT: No hearing loss, No unusual epistaxis, No nasal symptoms Respiratory: No cough, No sputum, No wheezing Cardiovascular: No chest pain, No orthopnea, No PND Abdomen: + pain, + GI bleeding, No nausea, No vomiting Musculoskeletal: No joint pain, No muscle pain Genitourinary - Male: No hematuria, No dysuria, No urinary frequency, No urinary urgency Neurologic: No memory loss, No paralysis, No weakness Psychiatric: No depression symptoms Endocrine: No fatigue Hematologic / Lymphatic: No abnormal bleeding/bruising Integumentary: No rash Allergic / Immunologic: No environmental allergies Physical Exam Vital Signs Date Time Temp Pulse Resp B/P (MAP) Pulse Ox O2 Delivery O2 Flow Rate FiO2 10/22/16 01:47 82 16 136/81 96 10/22/16 01:35 85 16 94 10/22/16 01:15 86 10/22/16 00:58 145/93 10/22/16 00:56 96 Room Air 10/22/16 00:09 36.7 96 16 141/86 94 Room Air General Appearance: WD/WN, no apparent distress, + pertinent finding ( Overweight, middle-aged male in no distress) Head: normocephalic, atraumatic Eyes: normal inspection, PERRL, EOMI ENT: normal ENT inspection, hearing grossly normal, TMs normal, pharynx normal Neck: supple, no adenopathy, thyroid normal, no JVD Respiratory/Chest: chest non-tender Cardiovascular: regular rate, rhythm Abdomen/GI: normal bowel sounds, soft, + tenderness (Lower quadrants) Genitourinary - Male: normal male genitalia Back: normal inspection, no CVA tenderness, no muscle spasm, normal range of motion Extremities/Musculoskelatal: normal inspection Neurologic/Psych: chemist instrumentation II-XII nml as tested, no motor/sensory deficits, alert, normal mood/affect, normal reflexes, oriented x 3 Skin: normal color, warm/dry, no rash Diagnostics Laboratory Results Results Past 24 Hours Test 10/22/16 00:52 Range/Units White Blood Count 8.15 4.8-10.8 K/uL Red Blood Count 5.37 4.7-6.1 M/uL Hemoglobin 12.8 14.0-18.0 g/dL Hematocrit 42.3 42-52 % Mean Corpuscular Volume 78.8 80-100 fL Mean Corpuscular Hemoglobin 23.8 25-34 pg Mean Corpuscular Hemoglobin Concent 30.3 32-36 g/dl Platelet Count 202 130-400 K/uL Mean Platelet Volume 9.1 7.4-10.4 fL Neutrophils (%) (Auto) 57.8 % Lymphocytes (%) (Auto) 33.6 % Monocytes (%) (Auto) 6.7 % Eosinophils (%) (Auto) 0.9 % Basophils (%) (Auto) 0.5 % Neutrophils # (Auto) 4.71 1.4-6.5 K/uL Lymphocytes # (Auto) 2.74 1.2-3.4 K/uL Monocytes # (Auto) 0.55 0.11-0.59 K/uL Eosinophils # (Auto) 0.07 0-0.5 K/uL Basophils # (Auto) 0.04 0-0.2 K/uL RDW Standard Deviation 48.0 36.4-46.3 fL RDW Coefficient of Variation 16.8 11.5-14.5 % Immature Granulocyte % (Auto) 0.5 % Immature Granulocyte # (Auto) 0.04 0.00-0.02 K/uL Prothrombin Time 11.1 9.0-12.0 SECONDS Prothromb Time International Ratio 1.0 0.9-1.1 Activated Partial Thromboplast Time 27.1 21.0-31.0 SECONDS Partial Thromboplastin Ratio 1.0 Sodium Level 142 136-145 mmol/L Potassium Level 3.8 3.5-5.1 mmol/L Chloride Level 106 98-107 mmol/L Carbon Dioxide Level 27 21-32 mmol/L Anion Gap 9.0 3-11 mmol/L Blood Urea Nitrogen 19 7-18 mg/dl Creatinine 1.20 0.60-1.40 mg/dl Est Creatinine Clear Calc Drug Dose 113.0 ml/min Estimated GFR () 80.1 Estimated GFR (Non- 69.1 BUN/Creatinine Ratio 15.9 10-20 Random Glucose 102 70-99 mg/dl Calcium Level 8.8 8.5-10.1 mg/dl Impression Assessment and Plan 51 y/o M Hx asthma, HTN, gout. Pt had a routine colonoscopy on 10/19. 4-5 tubulovilous polyps were seen and a 1cm polyp was removed for analysis. At 3pm the previous day he began having lower abdominal pain which was followed by a grossly bloody bowel movement. He has since had 5 additional grossly bloody BMs. He has persistent lower quadrant abdominal pain. He denies SOB, CP or lightheadedness. 1) Hematochezia - due to recent polypectomy. Per GI instruction pt is admitted for repeat colonoscopy. Placed on IVF and bowel prep. GI consulted. Hb will be trended. 2) HTN - meds held pending procedure. 3) Gout - restart Allopurinol following procedure 4) Asthma - cont inhalers Full code - SCDs Total time for this admit including review of labs, meds, records Discussion with pt and ER attending - 31 min Level of Care Med/Surg Resuscitation Status FULL RESUSCITATION VTE Prophylaxis VTE Risk Assessment Done? Y/N: Yes Risk Level: Low Given or contraindicated: SCD's
[2016-10-22] MEDS: D5NSS + 20MEQ KCL 1,000 ML IV SCH ×2 (05:11→18:42)
[2016-10-22] MEDS ORDERED: MoRPHine SULFATE 2 MG/ML CARP IV STA (05:26)
[2016-10-22] MEDS ORDERED: LAVAGE SOLUTION 4000ML PO SCH (06:00)
[2016-10-22] MEDS ORDERED: PNEUMOCOCCAL ADMINISTRATION CHARGE ONE (06:00)
[2016-10-22] MEDS ORDERED: PNEUMOCOCCAL POLYSACCHARIDES 25 MCG/0.5 ML VIAL/SYR IM. ONE (06:00)
[2016-10-22] MEDS ORDERED: MoRPHine SULFATE 2 MG/ML CARP ONE (08:23)
[2016-10-22] MEDS: MoRPHine SULFATE 2 MG/ML CARP IV PRN ×2 (08:25→23:41)
[2016-10-22] MEDS: BUDESONIDE/FORMOTEROL FUMARATE 160/4.5 60 PUFFS/INHALER INH SCH ×2 (08:26→21:46)
--- NOTE | 2016-10-22 10:07 | Gastrointestinal Consultation ---
Gastrointestinal Consultation Date of Consultation: Oct 22, 2016 Attending Physician: Dr. Wolf Consulting Physician: Dr. Calhoun/QUENTIN Goldman Reason for Consultation: LGIB History of Present Illness Patient is a 51 year old male admitted to the hospital overnight with reports of bright rectal bleeding that began several hours prior to arrival. He is three days status post screening colonoscopy which was significant for 4 adenomatous polyps including one large 15 mm cecal polyp requiring Endoclip placement for hemostasis. The patient states that since arrival, he has passed approximately 10 bowel movements of only bright red blood. The patient has been taking a GoLytely bowel prep since ~ 0600 this morning. H&H was 12.8 on arrival and was noted to be 12.1 this morning. There was no noted leukocytosis on CBC. He denies any fever or chills, but is having bilateral lower quadrant pain described as sharp and cramping. He rates his pain as 3/10 at present without radiation. No nausea or vomiting or other GI complaints. Risk factors: No aspirin, NSAID or anticoagulant use. Past Medical/Surgical History Medical Problems: (1) Left shoulder pain Status: Acute (2) Rectal bleeding Status: Acute Past Medical History: 1. Hypertension 2. Asthma 3. Gout Past Surgical History: Complete colonoscopy Family History Hypertension Negative for GI malignancy or IBD Social History Smoking Status: Never Smoker Alcohol Use: none Marital Status: Housing Status: lives with significant other Occupation Status: employed Allergies Coded Allergies: Cephalexin (Verified Allergy, Intermediate, FEVER/DIAPHORESIS, 10/22/16) Current Medications Home Meds and Scripts Medications Dose Route/Sig Max Daily Dose Days Date Category [Testosterone] 1 Dose SC 2XWK 10/14/16 Reported Symbicort 160/4.5 Inhaler (Budesonide/Formoterol Fumarate) Aero 2 Puffs INH BID 07/31/16 Reported Zyloprim (Allopurinol) 100 Mg Tab 100 Mg PO QAM 01/15/16 Reported Zestoretic 20MG/12.5MG (HCTZ/Lisinopril) Tab 1 Tab PO AMPM 01/15/16 Reported Vascepa (Icosapent Ethyl) 1 Gm Cap 2 Cap PO BID 01/15/16 Reported Review of Systems Constitutional: + see HPI Eyes: No problem reported ENT: No problem reported Respiratory: No cough, No wheezing, No shortness of breath Cardiac: No chest pain, No palpitations Abdomen: + see HPI Musculoskeletal: No problem reported Male : No problem reported Neuro: No problem reported Psych: No problem reported Skin: No problem reported Physical Exam Date Time Temp Pulse Resp B/P (MAP) Pulse Ox O2 Delivery O2 Flow Rate FiO2 10/22/16 07:33 87 14 131/83 (99) 10/22/16 07:20 36.5 91 21 201/105 (137) 92 Room Air 10/22/16 04:40 Room Air 10/22/16 04:40 36.8 90 18 146/88 (107) 91 Room Air 10/22/16 04:33 150/100 10/22/16 04:17 86 20 92 10/22/16 03:47 84 12 93 10/22/16 03:17 88 18 94 10/22/16 02:47 90 19 91 10/22/16 02:17 87 17 93 10/22/16 01:48 136/81 10/22/16 01:47 87 16 93 10/22/16 01:47 82 16 136/81 96 10/22/16 01:35 85 16 94 10/22/16 01:15 86 10/22/16 00:58 145/93 10/22/16 00:56 96 Room Air 10/22/16 00:09 36.7 96 16 141/86 94 Room Air General Appearance: WD/WN, no apparent distress Eyes: EOMI ENT: hearing grossly normal Neck: supple Respiratory/Chest: lungs clear, normal breath sounds, no respiratory distress Cardiovascular: regular rate, rhythm, no gallop, no murmur Abdomen: normal bowel sounds, soft, + tenderness (bilateral lower quadrant) Extremities: normal inspection Neurologic/Psych: alert, normal mood/affect, oriented x 3 Skin: warm/dry Laboratory Results Last 24 Hours Test 10/22/16 00:52 10/22/16 08:07 White Blood Count 8.15 K/uL Red Blood Count 5.37 M/uL Hemoglobin 12.8 g/dL 12.1 g/dL Hematocrit 42.3 % Mean Corpuscular Volume 78.8 fL Mean Corpuscular Hemoglobin 23.8 pg Mean Corpuscular Hemoglobin Concent 30.3 g/dl Platelet Count 202 K/uL Mean Platelet Volume 9.1 fL Neutrophils (%) (Auto) 57.8 % Lymphocytes (%) (Auto) 33.6 % Monocytes (%) (Auto) 6.7 % Eosinophils (%) (Auto) 0.9 % Basophils (%) (Auto) 0.5 % Neutrophils # (Auto) 4.71 K/uL Lymphocytes # (Auto) 2.74 K/uL Monocytes # (Auto) 0.55 K/uL Eosinophils # (Auto) 0.07 K/uL Basophils # (Auto) 0.04 K/uL RDW Standard Deviation 48.0 fL RDW Coefficient of Variation 16.8 % Immature Granulocyte % (Auto) 0.5 % Immature Granulocyte # (Auto) 0.04 K/uL Prothrombin Time 11.1 SECONDS Prothromb Time International Ratio 1.0 Activated Partial Thromboplast Time 27.1 SECONDS Partial Thromboplastin Ratio 1.0 Sodium Level 142 mmol/L Potassium Level 3.8 mmol/L Chloride Level 106 mmol/L Carbon Dioxide Level 27 mmol/L Anion Gap 9.0 mmol/L Blood Urea Nitrogen 19 mg/dl Creatinine 1.20 mg/dl Est Creatinine Clear Calc Drug Dose 113.0 ml/min Estimated GFR () 80.1 Estimated GFR (Non- 69.1 BUN/Creatinine Ratio 15.9 Random Glucose 102 mg/dl Calcium Level 8.8 mg/dl Impression Patient is a 51 year old male three days status post screening colonoscopy with removal of 4 polyps, one large requiring Endoclip placement for hemostasis admitted with post-polypectomy bleeding and bilateral lower quadrant abdominal cramping. Plan 1. Complete bowel prep, then remain NPO. 2. Colonoscopy with Dr. Calhoun today for further evaluation. 3. Supportive care per primary team with close monitoring of H&H and blood transfusion if needed. 4. Additional recommendations pending results of testing. Agree with QUENTIN Goldman as above Abd: Soft, tender throughtout Proceed with colonoscopy for evaluation of probable post-polypectomy bleed
[2016-10-22] MEDS ORDERED: LIDOCAINE HCL 2% 2 ML VIAL (20MG/ML) ONE ×3 (16:15→16:39)
[2016-10-22] MEDS ORDERED: PROPOFOL IV EMULSION 10 MG/ML 20 ML VIAL IV ONE ×5 (16:15→16:54)
[2016-10-22] MEDS ORDERED: PHENYLEPHRINE 100MCG/ML 5ML SYR ONE (16:44)
[2016-10-22] MEDS ORDERED: FENTANYL CITRATE INJ 50 MCG/1 ML 2 ML VIAL ONE ×2 (17:27→17:46)
--- NOTE | 2016-10-22 17:27 | GI REPORT ---
Procedure Date: 10/22/2016 4:17 PM Procedure: Colonoscopy Indications: Treatment of bleeding from polypectomy site Medicines: Monitored Anesthesia Care Complications: No immediate complications. Estimated Blood Loss: Estimated blood loss: none. Procedure: Pre-Anesthesia Assessment: - Prior to the procedure, a History and Physical was performed, and patient medications and allergies were reviewed. The patient's tolerance of previous anesthesia was also reviewed. The risks and benefits of the procedure and the sedation options and risks were discussed with the patient. All questions were answered, and informed consent was obtained. Prior Anticoagulants: The patient has taken no previous anticoagulant or antiplatelet agents. ASA Grade Assessment: III - A patient with severe systemic disease. After reviewing the risks and benefits, the patient was deemed in satisfactory condition to undergo the procedure. After I obtained informed consent, the scope was passed under direct vision. Throughout the procedure, the patient's blood pressure, pulse, and oxygen saturations were monitored continuously. The scope was introduced through the anus and advanced to the cecum, identified by appendiceal orifice and ileocecal valve. The colonoscopy was performed without difficulty. The patient tolerated the procedure well. The quality of the bowel preparation was fair. The rectum was photographed. Findings: Prior polypectomy site was found in the proximal ascending colon with 5 endoclips which remained attached from previous colonoscopy. There was no evidence of clot, ulceration or bleeding at this site. A localized area of moderately ulcerated mucosa was found in the ascending colon. To prevent bleeding after the polypectomy, one hemostatic clip was successfully placed (MR conditional). There was no bleeding at the end of the procedure. Active bleeding was seen in the sigmoid colon, secondary to previous polypectomy procedure. Area was successfully injected with 8 mL of a 1:10,000 solution of epinephrine for hemostasis. To stop active bleeding, three hemostatic clips were successfully placed (MR conditional). There was no bleeding during the procedure. Impression: - Ulcerated mucosa in the ascending colon. Clip (MR conditional) was placed. - Bleeding in the sigmoid colon secondary to previous polypectomy. Injected. Clips (MR conditional) were placed. - Mucosa in the ascending colon. - No specimens collected. Recommendation: - Return patient to hospital [facility] for ongoing care. - Advance diet as tolerated. - Continue present medications. Miguelito Calhoun DO 10/22/2016 5:27:13 PM This report has been signed electronically. Note Initiated On: 10/22/2016 4:17 PM I attest to the content of the Intraoperative Record and orders documented therein, exceptions below
[2016-10-22] MEDS ORDERED: FENTANYL CITRATE INJ 50 MCG/1 ML 2 ML VIAL IV PRN (17:30)
--- NOTE | 2016-10-22 17:53 | Anesthesiology Progress Note ---
Anesthesia Post Op Note Date & Time Oct 22, 2016 at 17:54 Vital Signs Pain Intensity: 8 Vital Signs Past 12 Hours Date Time Temp Pulse Resp B/P (MAP) Pulse Ox O2 Delivery O2 Flow Rate FiO2 10/22/16 17:35 82 24 106/49 (68) 98 Room Air 10/22/16 17:20 82 22 123/92 (102) 98 Room Air 10/22/16 17:04 78 16 140/68 (92) 99 Room Air 10/22/16 15:55 37.1 89 20 125/88 (100) 95 Room Air 10/22/16 15:19 37.1 81 16 116/71 (86) 94 Room Air 10/22/16 07:40 Room Air 10/22/16 07:33 87 14 131/83 (99) 10/22/16 07:20 36.5 91 21 201/105 (137) 92 Room Air Notes Mental Status: alert / awake / arousable, participated in evaluation Pt Amnestic to Procedure: Yes Nausea / Vomiting: adequately controlled Pain: adequately controlled Airway Patency, RR, SpO2: stable & adequate BP & HR: stable & adequate Hydration State: stable & adequate Anesthetic Complications: no major complications apparent
--- NOTE | 2016-10-22 20:42 | Progress Note ---
Progress Note Date of Service Oct 22, 2016. Progress Note 2029 S: saw patient just before his colonoscopy today. He c/o mild lower abdominal discomfort. He reported ongoing BRBPR. No sob. O: VSS, afebrile gen - obese, NAD, a/o x 3 neck - no JVD mouth - MMM heart - RRR, s1, s2, no murmur lungs - CTA b/l abd - soft, minimal tenderness LLQ, BS+, obese ext - no edema labs - Hb 10.6 A/P: Acute blood loss anemia 2nd to lower GI bleeding - likely from previous polypectomy site. To the endoscopy suite today for colonoscopy to locate source of bleeding (Dr. Calhoun). Repeat Hemoglobin tonight and then again in AM. Omid Herrera MD
[2016-10-23 03:55] VITALS: BP 132/79; PULSE 86; TEMP 36.8; O2SAT 99
[2016-10-23] MEDS: D5NSS + 20MEQ KCL 1,000 ML IV SCH (03:59)
[2016-10-23] MEDS: MoRPHine SULFATE 2 MG/ML CARP IV PRN ×2 (03:59→08:33)
[2016-10-23 06:57] LABS: HEMATOCRIT 30.8 % (42-52); MEAN CELL VOLUME 79.8 fL (80-100); MEAN CORPUSCULAR HEMOGLOBIN 23.3 pg (25-34); MEAN CORPUSCULAR HGB CONC 29.2 g/dl (32-36); MEAN PLATELET VOLUME 9.4 fL (7.4-10.4); PLATELET COUNT 191 K/uL (130-400); RED BLOOD COUNT 3.86 M/uL (4.7-6.1); WHITE BLOOD COUNT 9.11 K/uL (4.8-10.8)
[2016-10-23 07:09] VITALS: BP 131/82; PULSE 73; TEMP 36.8; O2SAT 95
[2016-10-23] MEDS: BUDESONIDE/FORMOTEROL FUMARATE 160/4.5 60 PUFFS/INHALER INH SCH ×2 (08:30→21:21)
--- NOTE | 2016-10-23 09:45 | Gastroenterology Progress Note ---
Progress Note Date of Service: Oct 23, 2016 Subjective Pt evaluation today including: conversation w/ patient, physical exam, lab review, review of inpatient medication list Patient reports mild lower abdominal cramping pain. Rates the pain as 4/10 in intensity. No nausea or vomiting. No further rectal bleeding status post colonoscopy yesterday with hemostasis of bleeding polypectomy site. Review of Systems Constitutional: No fever, No chills Respiratory: No shortness of breath Cardiac: No chest pain Abdomen: + see HPI Medications Current Inpatient Medications Medications (Trade) Dose Ordered Sig/Sixto Route Start Time Stop Time Status Last Admin Dose Admin Ondansetron HCl (Zofran Inj) 4 mg Q6H PRN IV 10/22/16 04:00 11/21/16 03:59 Budesonide/ Formoterol Fumarate (Symbicort 160/ 4.5 Inh) 2 puffs BID INH 10/22/16 09:00 11/21/16 08:59 10/23/16 08:30 2 PUFFS Morphine Sulfate (MoRPHine SULFATE INJ) 2 mg Q3H PRN IV 10/22/16 08:15 11/05/16 08:14 10/23/16 08:33 2 MG Objective Vital Signs Date Time Temp Pulse Resp B/P (MAP) Pulse Ox O2 Delivery O2 Flow Rate FiO2 10/23/16 07:09 36.8 73 17 131/82 (98) 95 Room Air 10/23/16 03:55 36.8 86 16 132/79 (96) 99 Room Air 10/23/16 00:00 Room Air 10/22/16 23:15 36.9 85 16 125/76 (92) 96 Room Air 10/22/16 22:35 Room Air 10/22/16 22:32 94 Room Air 10/22/16 20:30 36.6 86 18 112/76 (88) 94 Room Air 10/22/16 19:30 36.3 80 18 128/74 (92) 94 Room Air 10/22/16 19:01 36.6 78 16 118/77 (91) 91 Room Air 10/22/16 18:46 36.7 77 16 113/66 (82) 94 Room Air 10/22/16 18:20 75 18 114/75 (88) 94 Room Air 10/22/16 18:11 81 20 121/53 (75) 97 Nasal Cannula 3 10/22/16 18:01 74 16 116/60 (78) 94 Nasal Cannula 2 10/22/16 18:00 36.7 77 16 113/66 (82) 94 Room Air 10/22/16 17:52 80 24 116/60 (78) 98 Room Air 10/22/16 17:35 82 24 106/49 (68) 98 Room Air 10/22/16 17:20 82 22 123/92 (102) 98 Room Air 10/22/16 17:04 78 16 140/68 (92) 99 Room Air 10/22/16 15:55 37.1 89 20 125/88 (100) 95 Room Air 10/22/16 15:19 37.1 81 16 116/71 (86) 94 Room Air Physical Exam General Appearance: no apparent distress Respiratory/Chest: lungs clear, normal breath sounds, no respiratory distress Cardiovascular: regular rate, rhythm, no gallop, no murmur Abdomen: normal bowel sounds, soft, + tenderness (BLQ) Neurologic/Psych: alert, normal mood/affect, oriented x 3 Laboratory Results Last 24 Hours Test 10/22/16 12:34 10/22/16 19:51 10/23/16 06:26 Hemoglobin 10.6 g/dL 10.0 g/dL 9.0 g/dL White Blood Count 9.11 K/uL Red Blood Count 3.86 M/uL Hematocrit 30.8 % Mean Corpuscular Volume 79.8 fL Mean Corpuscular Hemoglobin 23.3 pg Mean Corpuscular Hemoglobin Concent 29.2 g/dl RDW Standard Deviation 50.0 fL RDW Coefficient of Variation 17.3 % Platelet Count 191 K/uL Mean Platelet Volume 9.4 fL Assessment and Plan Patient is a 51 year old male three days status post screening colonoscopy with removal of 4 polyps, one large requiring Endoclip placement for hemostasis admitted with post-polypectomy bleeding and bilateral lower quadrant abdominal cramping. Repeat colonoscopy yesterday with successful Encoclip placement from prior polypectomy site within the sigmoid colon. 1. Continue dietary advancement as tolerated. 2. Monitor H&H. No further reports of bleeding. 3. Supportive care per primary team. Agree with QUENTIN Goldman as above Abd: Soft, tender LLQ and RLQ, ND, +BS Abdominal series negative Continue current therapy. No further GI bleeding
[2016-10-23] MEDS: OXYCODONE HCL IR 5 MG TAB (IMMEDIATE RELEASE) PO PRN ×2 (13:21→21:22)
--- NOTE | 2016-10-23 14:39 | DIAGNOSTIC IMAGING REPORT ---
ABDOMEN 2VIEW W/PA CHEST RTN CLINICAL HISTORY: abdominal pain, colonoscopy yesterday pain. Postcolonoscopy pain. COMPARISON STUDY: No previous studies for comparison. FINDINGS: The soft tissues, psoas shadows, renal outlines and intestinal gas pattern appear normal. There is no evidence for bowel obstruction. There is no evidence for free intraperitoneal air. No abnormal abdominal calcifications are seen. A frontal view of the chest was performed and is unremarkable. IMPRESSION: Normal study. Electronically signed by: Neil Thomas M.D. 10/23/2016 2:37 PM Dictated Date/Time: 10/23/2016 2:37 PM
[2016-10-23 15:20] VITALS: BP 138/83; PULSE 82; TEMP 36.9; O2SAT 97
[2016-10-23 19:03] LABS: BUN/CREATININE RATIO 11.4 (10-20); CREATININE 1.1 mg/dl (0.60-1.40); POTASSIUM 4.1 mmol/L (3.5-5.1)
--- NOTE | 2016-10-23 20:21 | Progress Note ---
Subjective Date of Service: Oct 23, 2016. Subjective Pt evaluation today including: conversation w/ patient, physical exam, chart review, lab review, review of studies (abdominal xrays), conversation w/ pharmacy consultant (gastroenterology), review of inpatient medication list Pain: RLQ PO Intake: tolerating diet Voiding: no voiding problems no further rectal bleeding he had b/l lower quadrant cramping overnight and today the LLQ feels better but he has RLQ pain today the pain is worse with movement no vomiting no nausea not passing much gas no stool since yesterday tolerating diet Problem List Medical Problems: (1) Left shoulder pain Status: Acute (2) Rectal bleeding Status: Acute Review of Systems Constitutional: No fever, No chills Respiratory: No shortness of breath Cardiac: No chest pain Abdomen: No nausea, No vomiting Objective Vital Signs Date Time Temp Pulse Resp B/P (MAP) Pulse Ox O2 Delivery O2 Flow Rate FiO2 10/23/16 16:30 Room Air 10/23/16 15:20 36.9 82 18 138/83 (101) 97 Room Air 10/23/16 08:33 Room Air 10/23/16 07:09 36.8 73 17 131/82 (98) 95 Room Air 10/23/16 03:55 36.8 86 16 132/79 (96) 99 Room Air 10/23/16 00:00 Room Air 10/22/16 23:15 36.9 85 16 125/76 (92) 96 Room Air 10/22/16 22:35 Room Air 10/22/16 22:32 94 Room Air 10/22/16 20:30 36.6 86 18 112/76 (88) 94 Room Air Physical Exam General Appearance: no apparent distress, + obese ENT: pharynx normal Neck: no JVD Respiratory/Chest: lungs clear, no respiratory distress, no accessory muscle use Cardiovascular: regular rate, rhythm, no gallop, no murmur Abdomen: normal bowel sounds, soft, no organomegaly, + tenderness (RLQ - worse with movements as well ) Extremities: no pedal edema Neurologic/Psychiatric: alert, oriented x 3 Laboratory Results Last 24 Hours Test 10/23/16 06:26 10/23/16 12:24 10/23/16 18:12 White Blood Count 9.11 K/uL Red Blood Count 3.86 M/uL Hemoglobin 9.0 g/dL 8.9 g/dL 9.3 g/dL Hematocrit 30.8 % Mean Corpuscular Volume 79.8 fL Mean Corpuscular Hemoglobin 23.3 pg Mean Corpuscular Hemoglobin Concent 29.2 g/dl RDW Standard Deviation 50.0 fL RDW Coefficient of Variation 17.3 % Platelet Count 191 K/uL Mean Platelet Volume 9.4 fL Sodium Level 141 mmol/L Potassium Level 4.1 mmol/L Chloride Level 105 mmol/L Carbon Dioxide Level 30 mmol/L Anion Gap 6.0 mmol/L Blood Urea Nitrogen 13 mg/dl Creatinine 1.10 mg/dl Est Creatinine Clear Calc Drug Dose 123.2 ml/min Estimated GFR () 89.0 Estimated GFR (Non- 76.8 BUN/Creatinine Ratio 11.4 Random Glucose 92 mg/dl Calcium Level 8.0 mg/dl Assessment and Plan 51yo male - 1. acute blood loss anemia 2nd to lower GI bleeding from previous polypectomy, POD #1 s/p colonoscopy to localize the bleeding with successful injection of epi and placement of clips. The bleeding was in the sigmoid colon. H/H this am, at noon, and at 6p tonight show stability making ongoing bleeding highly unlikely. Repeat CBC in am. 2. RLQ abdominal pain - abdominal x-rays without perforation or other abnormality. Colonic spasm? Due to placement of clips? Other? 3. HTN - hold BP meds. 4. asthma - not in exacerbation. Cont symbicort. 5. FEN - lytes stable this afternoon; observe off of fluids. Diet as tolerated. 6. DVT proph - chemical means contraindicated. SCDs. if abdominal pain is improved/resolved then d/c home tomorrow Discharge planning: home
[2016-10-23 23:10] VITALS: BP 128/81; PULSE 86; TEMP 36.8; O2SAT 95
[2016-10-24 07:09] LABS: BASO % 0.6 %; BASO ABS # 0.04 K/uL (0-0.2); EOS % 2.3 %; HEMATOCRIT 29.5 % (42-52); IG% 0.5 %; LYMPH % 32.2 %; LYMPH ABS # 2.13 K/uL (1.2-3.4); MEAN CORPUSCULAR HEMOGLOBIN 23.6 pg (25-34); MEAN CORPUSCULAR HGB CONC 29.2 g/dl (32-36); MEAN PLATELET VOLUME 9.5 fL (7.4-10.4); MONO % 7.1 %; NEUT % 57.3 %; PLATELET COUNT 175 K/uL (130-400); RED BLOOD COUNT 3.64 M/uL (4.7-6.1); WHITE BLOOD COUNT 6.61 K/uL (4.8-10.8)
[2016-10-24 07:38] LABS: ANISOCYTOSIS PRESENT; COMPLETE YES; MICROCYTOSIS PRESENT
[2016-10-24 07:39] VITALS: BP 134/84; PULSE 80; TEMP 36.4; O2SAT 98
[2016-10-24] MEDS: BUDESONIDE/FORMOTEROL FUMARATE 160/4.5 60 PUFFS/INHALER INH SCH (08:48)
--- NOTE | 2016-10-24 09:30 | Progress Note ---
Progress Note Date of Service Oct 24, 2016. Progress Note 9027 S: no events RLQ abd pain resolved +flatus no stool no overt GI bleeding feels good no nausea eating fine w/ regular diet O: VSS gen - nad heart - RRR lungs - CTA b/l abd - obese, soft, NT, RLQ pain RESOLVED ext - no edema 10/24/16 06:20 Red Blood Count 3.64, Mean Corpuscular Volume 81.0, Mean Corpuscular Hemoglobin 23.6, Mean Corpuscular Hemoglobin Concent 29.2, Mean Platelet Volume 9.5, Neutrophils (%) (Auto) 57.3, Lymphocytes (%) (Auto) 32.2, Monocytes (%) (Auto) 7.1, Eosinophils (%) (Auto) 2.3, Basophils (%) (Auto) 0.6, Neutrophils # (Auto) 3.79, Lymphocytes # (Auto) 2.13, Monocytes # (Auto) 0.47, Eosinophils # (Auto) 0.15, Basophils # (Auto) 0.04 10/23/16 18:12 Test 10/23/16 18:12 10/24/16 06:20 Anion Gap 6.0 mmol/L (3-11) Est Creatinine Clear Calc Drug Dose 123.2 ml/min Estimated GFR () 89.0 Estimated GFR (Non- 76.8 BUN/Creatinine Ratio 11.4 (10-20) Calcium Level 8.0 mg/dl (8.5-10.1) White Blood Count 6.61 K/uL (4.8-10.8) Red Blood Count 3.64 M/uL (4.7-6.1) Hemoglobin 8.6 g/dL (14.0-18.0) Hematocrit 29.5 % (42-52) Mean Corpuscular Volume 81.0 fL (80-100) Mean Corpuscular Hemoglobin 23.6 pg (25-34) Mean Corpuscular Hemoglobin Concent 29.2 g/dl (32-36) Platelet Count 175 K/uL (130-400) Mean Platelet Volume 9.5 fL (7.4-10.4) Neutrophils (%) (Auto) 57.3 % Lymphocytes (%) (Auto) 32.2 % Monocytes (%) (Auto) 7.1 % Eosinophils (%) (Auto) 2.3 % Basophils (%) (Auto) 0.6 % Neutrophils # (Auto) 3.79 K/uL (1.4-6.5) Lymphocytes # (Auto) 2.13 K/uL (1.2-3.4) Monocytes # (Auto) 0.47 K/uL (0.11-0.59) Eosinophils # (Auto) 0.15 K/uL (0-0.5) Basophils # (Auto) 0.04 K/uL (0-0.2) RDW Standard Deviation 50.9 fL (36.4-46.3) RDW Coefficient of Variation 17.2 % (11.5-14.5) Immature Granulocyte % (Auto) 0.5 % Immature Granulocyte # (Auto) 0.03 K/uL (0.00-0.02) Anisocytosis PRESENT Microcytosis PRESENT A/P: Acute blood loss anemia 2nd to lower GI bleeding from sigmoid polypectomy site, s/p epi injection w/ clip placement. RLQ abd pain - resolved. Was likely spasm vs pain in colon from recent manipulation and clips/injection. Slight drop in H/H overnight but vitals are stable, no GI symptoms, and no BRBPR - I don't believe there is any ongoing bleeding. d/c home on Ferrous sulfate 325mg TID. Needs for up to 3 months. Hold BP meds for now. Can likely resume at time of outpatient f/u in 3 days. Yolie TRIVEDI MD
[2016-10-24] MEDS ORDERED: FRRS300 PO (09:34)
--- NOTE | 2016-10-24 09:47 | Discharge Instructions ---
Discharge Instructions Date of Service Oct 24, 2016. Admission Reason for Admission: Blood per rectum Discharge Discharge Diagnosis / Problem: Rectal bleeding due to previous polyp removal - resolved. Discharge Goals Goal(s): Decrease discomfort, Improve disease control, Learn about illness, Diagnostic testing, Therapeutic intervention Activity Recommendations Activity Limitations: as noted below Until your time of follow-up with your family doctor please "take it easy" - recommend NO heavy yard work, NO heavy freelance operator, NO heavy lifting ( nothing over 20 pounds), NO going to the gym. Light walks are fine. Light activity around the house is fine. . Instructions / Follow-Up Instructions / Follow-Up From Dr. Herrera - 1. Anemia - * anemia is when your red blood cells are LOW * you have anemia because of the recent GI bleeding * GI bleeding leads to iron loss * thus, you will need to take iron for 2-3 months * please take ferrous sulfate 325mg three times a day; take this with a glass of orange juice to help absorb it better * note that iron makes you constipated and can turn your stools dark * the iron can be purchased across the counter; ask your pharmacist to help you locate it at the drug store 2. High blood pressure - * please HOLD your blood pressure medication until you see your family doctor this week 3. Cholesterol - * please HOLD your vascepa until you see your family doctor 4. Diet - * ok to resume a normal diet * would avoid excessive amounts of caffeine (coffee, soda, etc) for a few days 5. Please AVOID taking motrin, ibuprofen, naprosyn, aleve, aspirin until your family doctor tells you it is safe to do so. It is OK to take tylenol for aches/pains. 6. Please have a CBC (blood count) drawn on 10/26/16. You can have this drawn at [facility] or at Dr. Baum's office. Take the prescription with you for the blood work. 7. Please see Dr. Baum this 10/27/16. Current Hospital Diet Patient's current hospital diet: Regular Diet Discharge Diet Recommended Diet: Regular Diet Procedures Procedures Performed: colonoscopy with successful stoppage of the bleeding in the colon Pending Studies Studies pending at discharge: no Laboratory Results Hemoglobin A1c Test 08/06/16 14:58 Range/Units Estimated Average Glucose 120 mg/dl Hemoglobin A1c 5.8 H 4.5-5.6 % Medical Emergencies . Who to Call and When: Medical Emergencies: If at any time you feel your situation is an emergency, please call 911 immediately. . Non-Emergent Contact Non-Emergency issues call your: Primary Care Provider Call Non-Emergent contact if: temperature is above 100.5, your pain is not controlled, your pain is worsening, your pain is unusual for you, your pain is concerning you, you have any medication questions 1. You have bright red blood in your stools. 2. Your abdominal pain returns. 3. Eating food makes your stomach/abdomen hurt. 4. You have dizziness, feeling like you could pass out, etc. . . "Provider Documentation" section prepared by Omid Herrera. . VTE Core Measure Inpt VTE Proph given/why not?: SCD's
[2016-10-24 10:26] VITALS: BP 134/84; PULSE 80; TEMP 36.4; O2SAT 98
--- NOTE | 2016-10-24 11:12 | Progress Note ---
Progress Note Date of Service Oct 24, 2016. Progress Note I was asked to see the patient by internal medicine this morning. The patient reports feeling much better today and no longer has abdominal discomfort. He is status post a recent colonoscopy repeated due to hematochezia. The patient should follow-up with his regular GI provider in 2-4 weeks. Please call with any questions or concerns
--- NOTE | 2016-10-27 11:53 | Discharge Summary ---
Discharge Summary Date of Service Oct 27, 2016. Discharge Summary Admission Date: Oct 22, 2016 at 03:54 Discharge Date: Oct 24, 2016 Discharge Disposition: Home Principal Diagnosis: acute blood loss anemia 2nd to lower GI bleeding Problems/Secondary Diagnoses: 1. asthma 2. obesity w/ BMI 39 3. HTN 4. hyperlipidemia 5. recent polypectomies of colon Procedures: colonoscopy - Miguelito Case, DO Findings: Prior polypectomy site was found in the proximal ascending colon with 5 endoclips which remained attached from previous colonoscopy. There was no evidence of clot, ulceration or bleeding at this site. A localized area of moderately ulcerated mucosa was found in the ascending colon. To prevent bleeding after the polypectomy, one hemostatic clip was successfully placed (MR conditional). There was no bleeding at the end of the procedure. Active bleeding was seen in the sigmoid colon, secondary to previous polypectomy procedure. Area was successfully injected with 8 mL of a 1:10,000 solution of epinephrine for hemostasis. To stop active bleeding, three hemostatic clips were successfully placed (MR conditional). Consultations: gastroenterology - Miguelito Case, DO Medication Reconciliation New Medications: Ferrous Sulfate (Ferrous Sulfate) 325 Mg Tab 325 MG PO TID, #90 TAB 2 Refills take with glass of orange juice Continued Medications: Allopurinol (Zyloprim) 100 Mg Tab 100 MG PO QAM, TAB Budesonide/Formoterol Fumarate (Symbicort 160/4.5 Inhaler ) Aero 2 PUFFS INH BID, INHALER [Testosterone] () 1 DOSE SC [id number] Discontinued Medications: Icosapent Ethyl (Vascepa) 1 Gm Cap 2 CAP PO BID Lisinopril/Hctz (Zestoretic 20MG/12.5MG) Tab 1 TAB PO AMPM, TAB Discharge Exam Physical Exam: General Appearance: WD/WN, no apparent distress, + obese ENT: pharynx normal Neck: no JVD Respiratory/Chest: lungs clear, no respiratory distress, no accessory muscle use Cardiovascular: regular rate, rhythm, no gallop, no murmur, normal peripheral pulses Abdomen / GI: normal bowel sounds, non tender, soft, no organomegaly Extremities: no pedal edema Neurologic/Psychiatric: alert, oriented x 3 Hospital Course HISTORY OF PRESENT ILLNESS: 51yo male with history of asthma, HTN, and gout who underwent a routine colonoscopy on 10/19/16. 4-5 tubulovillous polyps were seen and a 1cm polyp was removed for analysis. At 3pm the previous day he began having lower abdominal pain which was followed by a grossly bloody bowel movement. He has since had 5 additional grossly bloody BMs. He has persistent lower quadrant abdominal pain. He denies SOB, CP or lightheadedness. HOSPITAL COURSE: The patient had evidence of acute blood loss anemia due to his lower GI bleeding. Fortunately he did not require blood transfusion. Hemoglobin on day of discharge was 9.5 The patient underwent a repeat colonoscopy by Dr. Miguelito Calhoun showing that the active GI bleeding was due to a previous polypectomy site in the sigmoid colon. This area was injected with epinephrine and had hemostatic clips placed. Following his colonoscopy he was restarted on a diet and advanced as tolerated. He did have mild lower abdominal pain following the colonoscopy which was likely due to the manipulation of the colon to stop the bleeding. The abdominal pain gradually resolved prior to discharge. Abdominal x-rays were unremarkable. No gross blood was seen following the colonoscopy either. He was asked to take ferrous sulfate after discharge. In addition he was counseled to hold his BP medications as his BPs were controlled without medication in the setting of his acute blood loss. At time of hospital follow- up I suspect his BP meds will need to be restarted. Total Time Spent: Less than 30 minutes This includes examination of the patient, discharge planning, medication reconciliation, and communication with other providers. Discharge Instructions Please refer to the electronic Patient Visit Report (Discharge Instructions) for additional information. Follow-Up see Dr. Baum, PCP, within 3-[address] Calhoun in 2-3 weeks Additional Copies To Miguelito Calhoun D.O.; Travis Baum M.D.
[2017-03-25] MEDS ORDERED: LISI-787 PO (10:18)
[2017-04-02] MEDS ORDERED: PROM25TA9 PO (12:04)
[2017-04-02] MEDS ORDERED: OXYC-57 PO (12:04)
[2017-04-02] MEDS ORDERED: ASPI81TA28 PO (12:04)
== END 2016-10-24 11:55 | disposition home or self-care (01) | DRG 379 ==
LOC: C.EDB 00:06 → C.MSN 03:54 → ENRESERV 04:16
PROVIDERS: ADMIT Internal Medicine; ATTEND Internal Medicine
PROC: 0DJD8ZZ Inspection of Lower Intestinal Tract, Via Natural or Artificial Opening Endoscopic (ICD-10-PCS; principal; 2016-10-22 15:49)
DX: K92.1 Melena (principal); D64.9 Anemia, unspecified; J45.909 Unspecified asthma, uncomplicated; I10 Essential (primary) hypertension; M10.9 Gout, unspecified

== ENCOUNTER → 2016-10-26 | Outpatient (CLI) | payer BC ==
[~2016-10-26] MED LIST changes: +ASPI81TA28 PO; +FRRS300 PO; -ICOS1CAP PO; +OXYC-57 PO; +PHEN-876 PO; +PROM25TA9 PO; +SULF800T23 PO
[2016-10-26 12:18] LABS: MEAN CORPUSCULAR HGB CONC 30.5 g/dl (32-36); PLATELET COUNT 219 K/uL (130-400)
[2016-10-26 12:44] LABS: HEMATOCRIT 28.2 % (42-52); MEAN CELL VOLUME 80.1 fL (80-100); MEAN CORPUSCULAR HEMOGLOBIN 24.4 pg (25-34); RED BLOOD COUNT 3.52 M/uL (4.7-6.1); WHITE BLOOD COUNT 6.01 K/uL (4.8-10.8)
[2016-10-26 12:46] LABS: COMPLETE YES; LYMPH ABS # 0.75 K/uL (1.2-3.4); LYMPHOCYTE % 12.4 %; NEUTROPHILS % 79.6 %
--- NOTE | 2016-10-30 10:41 | CODING QUERY MEDICAL NECESSITY ---
SUPPORTING DIAGNOSIS NEEDED Kisha MEEK, A supporting diagnosis is required for the test/procedure performed on this patient in order for us to be reimbursed by the patient's insurance. Please provide a supporting diagnosis for the following test/procedure listed below next to the test name along with your signature. *If there is no additional diagnosis for this patient that would support the following test/procedure please document that below next to the test/procedure. Test(s)/Procedure(s) that require a supporting diagnosis: * 24423 PSA DIAGNOSIS: DATE OF SERVICE: 10/26/16 Provider Signature: Date: Thank you Maykel Barkley [facility] Information Management Once completed, please kindly fax back to [phone] For questions please call [phone]
== END | disposition home or self-care (01) ==
LOC: C.LABBFT 09:20
PROVIDERS: ATTEND Internal Medicine
DX: D64.9 Anemia, unspecified (principal); E03.9 Hypothyroidism, unspecified; R53.83 Other fatigue; R63.5 Abnormal weight gain; G47.9 Sleep disorder, unspecified; E55.9 Vitamin D deficiency, unspecified; E25.8 Other adrenogenital disorders; R53.81 Other malaise

== ENCOUNTER → 2016-11-02 | Outpatient (CLI) | payer BC ==
[2016-11-02 13:21] LABS: HEMATOCRIT 31.3 % (42-52); MEAN CELL VOLUME 82.8 fL (80-100); MEAN CORPUSCULAR HEMOGLOBIN 23.5 pg (25-34); MEAN CORPUSCULAR HGB CONC 28.4 g/dl (32-36); MEAN PLATELET VOLUME 10.3 fL (7.4-10.4); PLATELET COUNT 247 K/uL (130-400); RED BLOOD COUNT 3.78 M/uL (4.7-6.1); WHITE BLOOD COUNT 6.96 K/uL (4.8-10.8)
[2016-11-02 13:24] LABS: BASO % 0.7 %; BASO ABS # 0.05 K/uL (0-0.2); COMPLETE YES; EOS % 1.1 %; IG% 0.9 %; LYMPH % 28.6 %; LYMPH ABS # 1.99 K/uL (1.2-3.4); MONO % 7.6 %; NEUT % 61.1 %; POLYCHROMASIA 1+
== END | disposition home or self-care (01) ==
LOC: C.LABBFT 08:54
PROVIDERS: ATTEND Internal Medicine
DX: D64.9 Anemia, unspecified (principal)

== ENCOUNTER → 2016-11-04 | Outpatient (CLI) | payer BC ==
[~2016-11-04] VITALS: Ht 193 cm; Wt 342.0 kg
[2016-11-04 12:20] VITALS: BP 135/81; PULSE 82; Ht 193 cm; Wt 342.0 kg
== END | disposition home or self-care (01) ==
LOC: C.NEUR 11:30
PROVIDERS: ATTEND Internal Medicine Pulmonary Disease
DX: G47.33 Obstructive sleep apnea (adult) (pediatric) (principal)

== ENCOUNTER → 2016-11-18 | Outpatient (CLI) | payer BC ==
[~2016-11-18] MED LIST changes: -ASPI81TA28 PO; -LISI-787 PO; -OXYC-57 PO; -PHEN-876 PO; -PROM25TA9 PO; -SULF800T23 PO
[2016-11-18 12:29] LABS: BASO % 0.9 %; BASO ABS # 0.05 K/uL (0-0.2); EOS % 1.8 %; HEMATOCRIT 40.7 % (42-52); IG% 0.4 %; LYMPH % 38.1 %; LYMPH ABS # 2.14 K/uL (1.2-3.4); MEAN CELL VOLUME 86.6 fL (80-100); MEAN CORPUSCULAR HEMOGLOBIN 25.3 pg (25-34); MEAN CORPUSCULAR HGB CONC 29.2 g/dl (32-36); MEAN PLATELET VOLUME 9.7 fL (7.4-10.4); MONO % 8.4 %; NEUT % 50.4 %; PLATELET COUNT 229 K/uL (130-400); WHITE BLOOD COUNT 5.62 K/uL (4.8-10.8)
[2016-11-18 12:54] LABS: ANISOCYTOSIS PRESENT; COMPLETE YES
== END | disposition home or self-care (01) ==
LOC: C.LABBFT 08:09
PROVIDERS: ATTEND Physician Assistant Medical
DX: D64.9 Anemia, unspecified (principal)

== ENCOUNTER → 2017-01-25 | Outpatient (CLI) | payer BC ==
[2017-01-25 12:41] LABS: HEMATOCRIT 46.9 % (42-52); MEAN CELL VOLUME 79.8 fL (80-100); MEAN CORPUSCULAR HGB CONC 31.3 g/dl (32-36); MEAN PLATELET VOLUME 10.1 fL (7.4-10.4); PLATELET COUNT 222 K/uL (130-400); RED BLOOD COUNT 5.88 M/uL (4.7-6.1); WHITE BLOOD COUNT 8.35 K/uL (4.8-10.8)
--- NOTE | 2017-02-15 12:30 | CODING QUERY MEDICAL NECESSITY ---
CQSUPPORTING DIAGNOSIS NEEDED A supporting diagnosis is required for the test/procedure performed on this patient in order for us to be reimbursed by the patient's insurance. Please provide a supporting diagnosis for the following test/procedure listed below next to the test name along with your signature. *If there is no additional diagnosis for this patient that would support the following test/procedure please document that below next to the test/procedure. Test(s)/Procedure(s) that require a supporting diagnosis: DOS 01/25/17 PROSTATE SPECIFIC Provider Signature: Date: Thank you Barbara [facility] [email or web address] Information Management Once completed, please kindly fax back to [phone] For questions please call [phone]
== END | disposition home or self-care (01) ==
LOC: C.LABBFT 10:19
PROVIDERS: ATTEND Nurse Practitioner Acute Care
DX: E03.9 Hypothyroidism, unspecified (principal); R53.83 Other fatigue; R63.5 Abnormal weight gain; G47.9 Sleep disorder, unspecified; E55.9 Vitamin D deficiency, unspecified; E25.9 Adrenogenital disorder, unspecified; E34.9 Endocrine disorder, unspecified; R68.82 Decreased libido

== ENCOUNTER 2017-04-12 22:21 | Emergency (ER) | payer BC ==
[~2017-04-12 22:21] MED LIST changes: +ASPI81TA28 PO; -FRRS300 PO; +LISI-787 PO; +OXYC-57 PO; +PROM25TA9 PO
[2017-04-12 22:32] VITALS: TEMP 36.9; Ht 193 cm
[2017-04-12 23:52] LABS: BASO % 0.3 %; BASO ABS # 0.03 K/uL (0-0.2); COMPLETE YES; EOS % 1.4 %; HEMATOCRIT 44.8 % (42-52); IG% 0.9 %; LYMPH % 19.3 %; LYMPH ABS # 2.01 K/uL (1.2-3.4); MEAN CELL VOLUME 81.2 fL (80-100); MEAN CORPUSCULAR HEMOGLOBIN 25.9 pg (25-34); MEAN CORPUSCULAR HGB CONC 31.9 g/dl (32-36); MEAN PLATELET VOLUME 9.2 fL (7.4-10.4); MONO % 6.3 %; NEUT % 71.8 %; PLATELET COUNT 280 K/uL (130-400); RED BLOOD COUNT 5.52 M/uL (4.7-6.1); WHITE BLOOD COUNT 10.43 K/uL (4.8-10.8)
[2017-04-13 00:11] LABS: BLOOD UREA NITROGEN 26 mg/dl (7-18); BUN/CREATININE RATIO 19.8 (10-20); CALCIUM 9.6 mg/dl (8.5-10.1); CARBON DIOXIDE 28 mmol/L (21-32); CHLORIDE 99 mmol/L (98-107); GLUCOSE 111 mg/dl (70-99); POTASSIUM 4.2 mmol/L (3.5-5.1); SODIUM 134 mmol/L (136-145)
[2017-04-13] MEDS ORDERED: MoRPHine SULFATE 10 MG/ML CARP/VIAL IV STA (00:30)
[2017-04-13 00:31] LABS: URINE APPEARANCE CLEAR (CLEAR); URINE BILIRUBIN NEG (NEG); URINE COLOR YELLOW; URINE NITRITE NEG (NEG); URINE SPECIFIC GRAVITY 1.023 (1.000-1.030); UROBILINOGEN NEG (NEG); ZZUR CULT IF INDIC CLEAN CATCH YES
[2017-04-13 00:36] LABS: MANUAL MICROSCOPIC REQUIRED? NO; REVIEW REQ? NO
[2017-04-13] MEDS ORDERED: SULF800T23 PO (01:56)
[2017-04-13] MEDS ORDERED: PHEN-876 PO (01:56)
--- NOTE | 2017-04-13 01:56 | EMERGENCY ROOM VISIT NOTE ---
History First contact with patient: 23:06 Chief Complaint: HEMATURIA Stated Complaint: S/P ANKLE SURG. 04/02; BLOOD PASSING IN URINE Nursing Triage Summary: recent left ankle surgery tonight c/o pain with urination and " peeing blood." History of Present Illness The patient is a 51 year old male who presents to the Emergency Room with complaints of dysuria and blood in the urine. The patient reports that tonight he urinated and had a large amount of blood in the urine. He states it was very painful to urinate. He describes the pain as a burning sensation. He does report some pain in the abdomen, but denies back pain. The patient had a surgery on his left ankle a few weeks ago. He has been taking a baby aspirin, but no other blood thinners. He denies chest pain or shortness of breath. He rates his discomfort a 6/10. He denies any history of urinary tract infections or kidney stones. Review of Systems A complete 10 point review of systems was reviewed with the patient with pertinent positives and negatives as per history of present illness. All else were negative. Past Medical/Surgical History Medical Problems: (1) Asthma (2) GI hemorrhage (3) Hypertension (4) Osteoarthritis of left hindfoot Family History Hypertension Social History Smoking Status: Never Smoker Alcohol Use: none Marital Status: Housing Status: lives with significant other Occupation Status: employed Current/Historical Medications Scheduled Allopurinol (Zyloprim), 100 MG PO QAM Aspirin (Aspirin Ec), 81 MG PO Q12 Budesonide/Formoterol Fumarate (Symbicort 160/4.5 Inhaler ), 2 PUFFS INH BID Lisinopril/Hctz (Zestoretic 20MG/12.5MG), 1 TAB PO BID Phenazopyridine HCl (Pyridium), 200 MG PO TID Sulfa/Trimethoprim (Bactrim Ds 800MG/160MG), 1 TAB PO BID [Testosterone], 1 DOSE SC [id number] Scheduled PRN Oxycodone/Acetaminophen 5MG/325MG (Percocet 5MG/325MG), 1-2 TABLETS PO Q4H PRN for Pain Promethazine Hcl (Phenergan), 25 MG PO Q6H PRN for Nausea Physical Exam Vital Signs Date Time Temp Pulse Resp B/P (MAP) Pulse Ox O2 Delivery O2 Flow Rate FiO2 04/13/17 02:02 92 18 131/74 93 Room Air 04/13/17 00:58 97 18 138/91 94 Room Air 04/12/17 22:32 36.9 105 20 118/66 96 Room Air Physical Exam VITALS: Vitals are noted on the nurse's note and reviewed by myself. Vital signs stable. GENERAL: This is a 51-year-old male, in no acute distress, nondiaphoretic, well- developed well-nourished. HEART: Regular rate and rhythm without murmurs gallops or rubs. LUNGS: Clear to auscultation bilaterally without wheezes, rales or rhonchi. ABDOMEN: Positive bowel sounds x 4. Soft, mild suprapubic tenderness to palpation. MUSCULOSKELETAL: There is a splint in place on the left lower extremity. NEURO: Patient was alert and oriented to person place and time. Medical Decision & Procedures ER Provider Diagnostic Interpretation: CT ABDOMEN & PELVIS WITHOUT CONTRAST: At least 1 small nonobstructive left renal calcification noted. Other more questionable punctate nonobstructive renal calcifications versus artifact. No ureteral calculus. No hydronephrosis. Bilateral perinephric infiltration. Nonspecific. Correlate for pyelonephritis. Cholelithiasis. Splenomegaly. Spleen measures about 16 cm. Hepatic steatosis. No bowel obstruction, appendicitis or other acute process within the abdomen or pelvis. Old granulomatous disease and other nonemergent/incidental findings. Radiologist: Travis Saenz MD Laboratory Results 04/12/17 23:35 Red Blood Count 5.52, Mean Corpuscular Volume 81.2, Mean Corpuscular Hemoglobin 25.9, Mean Corpuscular Hemoglobin Concent 31.9, Mean Platelet Volume 9.2, Neutrophils (%) (Auto) 71.8, Lymphocytes (%) (Auto) 19.3, Monocytes (%) (Auto) 6.3, Eosinophils (%) (Auto) 1.4, Basophils (%) (Auto) 0.3, Neutrophils # (Auto) 7.49, Lymphocytes # (Auto) 2.01, Monocytes # (Auto) 0.66, Eosinophils # (Auto) 0.15, Basophils # (Auto) 0.03 04/12/17 23:35 Test 04/12/17 23:35 04/12/17 23:59 White Blood Count 10.43 K/uL (4.8-10.8) Red Blood Count 5.52 M/uL (4.7-6.1) Hemoglobin 14.3 g/dL (14.0-18.0) Hematocrit 44.8 % (42-52) Mean Corpuscular Volume 81.2 fL (80-100) Mean Corpuscular Hemoglobin 25.9 pg (25-34) Mean Corpuscular Hemoglobin Concent 31.9 g/dl (32-36) Platelet Count 280 K/uL (130-400) Mean Platelet Volume 9.2 fL (7.4-10.4) Neutrophils (%) (Auto) 71.8 % Lymphocytes (%) (Auto) 19.3 % Monocytes (%) (Auto) 6.3 % Eosinophils (%) (Auto) 1.4 % Basophils (%) (Auto) 0.3 % Neutrophils # (Auto) 7.49 K/uL (1.4-6.5) Lymphocytes # (Auto) 2.01 K/uL (1.2-3.4) Monocytes # (Auto) 0.66 K/uL (0.11-0.59) Eosinophils # (Auto) 0.15 K/uL (0-0.5) Basophils # (Auto) 0.03 K/uL (0-0.2) RDW Standard Deviation 54.8 fL (36.4-46.3) RDW Coefficient of Variation 18.5 % (11.5-14.5) Immature Granulocyte % (Auto) 0.9 % Immature Granulocyte # (Auto) 0.09 K/uL (0.00-0.02) Anion Gap 7.0 mmol/L (3-11) Estimated GFR () 72.7 Estimated GFR (Non- 62.7 BUN/Creatinine Ratio 19.8 (10-20) Calcium Level 9.6 mg/dl (8.5-10.1) Urine Color YELLOW Urine Appearance CLEAR (CLEAR) Urine pH 5.0 (4.5-7.5) Urine Specific Gilbert 1.023 (1.000-1.030) Urine Protein NEG (NEG) Urine Glucose (UA) NEG (NEG) Urine Ketones NEG (NEG) Urine Occult Blood 2+ (NEG) Urine Nitrite NEG (NEG) Urine Bilirubin NEG (NEG) Urine Urobilinogen NEG (NEG) Urine Leukocyte Esterase SMALL (NEG) Urine WBC (Auto) 10-30 /hpf (0-5) Urine RBC (Auto) >30 /hpf (0-4) Urine Hyaline Casts (Auto) 1-5 /lpf (0-5) Urine Epithelial Cells (Auto) 10-20 /lpf (0-5) Urine Bacteria (Auto) NEG (NEG) Medications Administered Medications (Trade) Dose Ordered Sig/Sixto Route Start Time Stop Time Status Last Admin Dose Admin Morphine Sulfate (MoRPHine SULFATE INJ) 6 mg NOW STAT IV 04/13/17 00:30 04/13/17 00:31 DC 04/13/17 00:58 6 MG Trimethoprim/ Sulfamethoxazole (Sulfameth/ Trimeth Ds 800/ 160MG Home Pack) 1 homepack UD ONCE PO 04/13/17 02:00 04/13/17 02:01 DC 04/13/17 02:03 1 HOMEPACK Phenazopyridine HCl (Phenazopyridine HCl 200MG Home Pack) 1 homepack UD ONCE PO 04/13/17 02:00 04/13/17 02:01 DC 04/13/17 02:03 1 HOMEPACK ED Course The patient was evaluated as above. Labs were drawn and IV access was obtained. Patient was medicated with 6 mg morphine for pain. CT of the abdomen and pelvis was performed and read by radiology as above. Patient was reevaluated and findings were discussed. He was given a home pack of Bactrim and Pyridium. Discharge instructions were reviewed with the patient. The patient verbalized understanding of my assessment and treatment plan and was discharged home in good condition. Medical Decision Differential diagnosis includes kidney stone, pyelonephritis, urinary tract infection, among others. The patient is a 51-year-old male who presents today complaining of hematuria and dysuria. Labs were unremarkable. CT negative for stone. Urinalysis suggestive of likely infection given the patient's symptoms. Culture pending. He will be placed on Bactrim. He was given Pyridium for symptomatic relief. He will needed follow-up with his primary care provider and may need urology follow-up if symptoms do not resolve. He was instructed to return with any worsening symptoms. The patient's case was reviewed with Dr. Aldridge, ED attending physician, who agreed with my assessment and treatment plan. Based on the patient's presentation and work up, I feel the patient is stable for outpatient treatment. The patient was educated to return to the emergency department for any worsening of their current condition or new/concerning symptoms. He will follow up with his PCP. Medication Reconcilliation Current Medication List: was personally reviewed by me Blood Pressure Screening Patient's blood pressure: Normal blood pressure Impression Primary Impression: Acute cystitis with hematuria Departure Information Dispostion Home / Self-Care Condition GOOD Prescriptions Phenazopyridine HCl (Pyridium) 200 Mg Tab 200 MG PO TID for 2 Days, #6 TAB Prov: Melissa Storey PA-C 04/13/17 Sulfa/Trimethoprim (Bactrim Ds 800MG/160MG) Tab 1 TAB PO BID for 9 Days, #18 TAB Prov: Melissa Storey PA-C 04/13/17 Referrals Travis Baum M.D. (PCP) Patient Instructions My [facility] Additional Instructions You have been treated in the Emergency Department for a Urinary Tract Infection (UTI). You have been prescribed Bactrim to be taken twice daily as prescribed. This is an antibiotic. All antibiotics have the potential to cause diarrhea. Stop this medication and contact a medical provider if you were to develop any significant adverse side effects including: wheezing, shortness of breath, passing out, vomiting, or a diffuse rash. Always take antibiotics as directed and COMPLETE the ENTIRE course regardless of the improvement of your symptoms. You have been prescribed Pyridium to be taken as prescribed. This medicine will help with the urinary symptoms that you have been experiencing. Be aware that Pyridium may turn your urine a red-orange or brown color. This effect is harmless. Drink plenty of water and stay well hydrated. As with any trip to the Emergency Department, you should follow-up with your Primary Care Provider from today's visit. Return to the emergency department if your symptoms persist despite treatment plan outlined above or if the following symptoms occur: increased fevers, chills , low back pain, nausea/vomiting, or blood in your urine.
[2017-04-13] MEDS ORDERED: PHENAZOPYRIDINE HOME PACK 200 MG VIAL PO ONE (02:00)
[2017-04-13] MEDS ORDERED: SEPTRA DS HOME PACK 1 EA VIAL PO ONE (02:00)
[2017-04-13 02:02] VITALS: BP 131/74; PULSE 92; O2SAT 93
--- NOTE | 2017-04-13 07:33 | DIAGNOSTIC IMAGING REPORT ---
ABDOMEN AND PELVIS CT WITHOUT CONTRAST CT DOSE: 1882.11 mGy.cm HISTORY: Diffuse abdominal pain. Hematuria. TECHNIQUE: Multiaxial CT images of the abdomen and pelvis were performed without the use of intravenous and oral contrast according to the standard department stone protocol. A dose lowering technique was utilized adhering to the principles of ALARA. COMPARISON STUDY: None. FINDINGS: The lung bases are clear. No acute fractures within the visualized osseous structures. Old, healed left-sided rib fractures. Mild hepatic steatosis. Cholelithiasis. No gallbladder wall thickening. A few scattered calcified granulomas within the liver and spleen. The unenhanced adrenal glands and pancreas are unremarkable. No retroperitoneal lymphadenopathy. The bladder is unremarkable. Subcentimeter left pelvic sidewall lymph nodes do not meet CT criteria for pathologic involvement. Degenerative changes seen within the lumbar spine with moderate central canal narrowing within the mid to lower lumbar spine. Punctate stone within the upper pole of the left kidney. No right renal calculi. No ureteral calculi. No hydronephrosis. Mild bilateral perinephric edema. This is likely chronic. Colonic diverticulosis. No bowel wall thickening or obstruction. Normal appendix. IMPRESSION: 1. Left-sided nephrolithiasis. No ureteral stones. No hydronephrosis. 2. No definite bowel wall thickening or obstruction. 3. Colonic diverticulosis. 4. Cholelithiasis. 5. Mild bilateral perinephric edema which is likely chronic. Recommend correlation with urinalysis to exclude the less likely possibility of an infectious process. Electronically signed by: Kye Partida M.D. 04/13/2017 7:31 AM Dictated Date/Time: 04/13/2017 7:25 AM
== END 2017-04-13 02:11 | disposition home or self-care (01) ==
LOC: C.EDB 22:22 → C.EDC 04-13 02:11
DX: N30.01 Acute cystitis with hematuria (principal); J45.909 Unspecified asthma, uncomplicated; I10 Essential (primary) hypertension; Z82.49 Family history of ischemic heart disease and other diseases of the circulatory system

== ENCOUNTER → 2017-08-05 | Outpatient (CLI) | payer BC ==
[2017-08-05 12:15] LABS: HEMATOCRIT 49.6 % (42-52); HEMOGLOBIN 15.7 g/dL (14.0-18.0); MEAN CORPUSCULAR HEMOGLOBIN 25.3 pg (25-34); MEAN CORPUSCULAR HGB CONC 31.7 g/dl (32-36); MEAN PLATELET VOLUME 10.2 fL (7.4-10.4); PLATELET COUNT 217 K/uL (130-400); RED CELL DISTRIBUTION WIDTH CV 18.1 % (11.5-14.5); RED CELL DISTRIBUTION WIDTH SD 51.8 fL (36.4-46.3)
[2017-08-05 12:38] LABS: ALBUMIN 4.1 gm/dl (3.4-5.0); ALKALINE PHOSPHATASE 101 U/L (45-117); ALT/SGPT 39 U/L (12-78); AST/SGOT 31 U/L (15-37); BLOOD UREA NITROGEN 24 mg/dl (7-18); CALCIUM 9.3 mg/dl (8.5-10.1); CARBON DIOXIDE 27 mmol/L (21-32); GLUCOSE 101 mg/dl (70-99); POTASSIUM 4.2 mmol/L (3.5-5.1); SODIUM 134 mmol/L (136-145); TOTAL PROTEIN 8.5 gm/dl (6.4-8.2)
[2017-08-05 13:02] LABS: HEMOGLOBIN A1C 5.7 % (4.5-5.6)
== END | disposition home or self-care (01) ==
LOC: C.LABBFT 07:56
PROVIDERS: ATTEND Nurse Practitioner Acute Care
DX: E03.9 Hypothyroidism, unspecified (principal); R53.83 Other fatigue; R63.5 Abnormal weight gain; G47.9 Sleep disorder, unspecified; E55.9 Vitamin D deficiency, unspecified; E25.9 Adrenogenital disorder, unspecified